=== PATIENT | female | born 1955 | race Caucasian/White ===

== ENCOUNTER 2020-09-08 08:33 | Emergency (ER) | payer OTHER, SELFPAY ==
[2020-09-08 08:45] VITALS: BP 142/82; PULSE 71; RESP 18; TEMP 36.6; O2SAT 98
--- NOTE | 2020-09-08 08:50 | ED.SKABFB ---
HPI - Skin/Abscess/Foreign Bdy General Chief complaint: Skin/Abscess/Foreign Body Stated complaint: boils Time Seen by Provider: 09/08/20 08:55 Source: patient Mode of arrival: ambulatory Limitations: no limitations History of Present Illness HPI narrative: Azael Victoria is a 65 yo female with a PMH of HTN, high cholesterol, seasonal allergies, who comes to express care with boils on abdomen, L buttock, and left labia. None are fluctuant; smaller ones on abdomen; larger one on labia Discussed care and MRSA and she is taking care of her father who is in hospice Related Data Home Medications Medication Instructions Recorded Confirmed atorvastatin [Lipitor] 40 mg PO DAILY 09/08/20 09/08/20 cholecalciferol (vitamin D3) 125 mcg PO DAILY 09/08/20 09/08/20 [Vitamin D3] clopidogrel [Plavix] 75 mg PO DAILY 09/08/20 09/08/20 levothyroxine 75 mcg PO DAILY 09/08/20 09/08/20 omeprazole 09/08/20 sertraline mg 09/08/20 Allergies Allergy/AdvReac Type Severity Reaction Status Date / Time No Known Allergies Allergy Verified 09/08/20 08:55 Review of Systems Review of Systems: Narrative: CONSTITUTIONAL: Denies fever, chills, sweats. EYES: Denies visual changes, redness, discharge. ENT: Denies rhinorrhea, congestion, sore throat, otalgia. CARDIOVASCULAR: Denies chest pain, palpitations, edema. RESPIRATORY: Denies dyspnea, wheezing, cough GASTROINTESTINAL: Denies abdominal pain, nausea, vomiting, diarrhea. GENITOURINARY: Denies dysuria, hematuria, abnormal discharge SKIN: Denies rash or itching. Multiple boils on abdomen genital left buttock NEUROLOGIC: Denies numbness, or focal weakness. PSYCHIATRIC: Denies anxiety or depression. [facility] Past Medical History Medical History (Updated 09/08/20 @ 09:37 by Joanne Ruiz CNP) High cholesterol HTN (hypertension) Stroke Family History Family History Other Diabetes mellitus Hypertension Social History Social History (Updated 09/08/20 @ 09:28 by Joanne Ruiz CNP) Smoking status: Never smoker Alcohol intake: never Comments At time of signature, I agree with nursing past medical, surgical, social and family history. There is no relevant family history pertinent to the presenting complaint. Exam Narrative: Exam Narrative: GENERAL: This is a well-nourished, well-developed patient, in mild distress. HEAD: normocephalic, atraumatic. EYES: Sclera clear/white. Vision is grossly intact. EARS: External ears normal, . Hearing grossly intact. NOSE: External nose normal without nasal discharge, nares without redness, no rhinorrhea. THROAT: Mucous membranes moist, NECK: Neck supple, non-tender CARDIOVASCULAR: Regular rate and rhythm without murmurs, gallops, or rubs. RESPIRATORY: Clear to auscultation. Breath sounds equal bilaterally. No wheezes, rales, or rhonchi. GASTROINTESTINAL: Abdomen soft, SKIN: warm, intact with no suspicious lesions or rash, good texture and turgor. Multiple stages of boils on abdomen and left buttock and left labia, left labia quite swollen but is not fluctuant, but on left buttock is one by one nonfluctuant, the 2 boils on her abdomen are less than half a centimeter in diameter nonfluctuant NEURO: awake, alert, and oriented to person, place and time. There were no obvious focal neurologic abnormalities. Steady gait EXTREMITIES: Normal range of motion. BACK: Nontender without deformity Course Vital Signs Vital signs: Vital Signs Temperature 98 F 09/08/20 08:45 Pulse Rate 71 09/08/20 08:45 Respiratory Rate 18 09/08/20 08:45 Blood Pressure 142/82 H 09/08/20 08:45 Pulse Oximetry 98 09/08/20 08:45 Temperature 98 F 09/08/20 08:45 Pulse Rate 71 09/08/20 08:45 Respiratory Rate 18 09/08/20 08:45 Blood Pressure 142/82 H 09/08/20 08:45 Pulse Oximetry 98 09/08/20 08:45 Procedures Abscess I/D bartholin's gland: Date of Incision:
== END 2020-09-08 09:40 | disposition home or self-care (01) ==
PROVIDERS: Emergency Provider Nurse Practitioner; PCP Family Medicine
DX: N75.1 Abscess of Bartholin's gland (principal); L03.317 Cellulitis of buttock; L02.221 Furuncle of abdominal wall; E78.00 Pure hypercholesterolemia, unspecified; I10 Essential (primary) hypertension; Z86.73 Personal history of transient ischemic attack (TIA), and cerebral infarction without residual deficits
CPT/HCPCS: 56420; 99213; G0463

== ENCOUNTER 2024-12-07 09:10 | Emergency (ER) | payer MEDICARE, SELFPAY ==
[2024-12-07 09:16] VITALS: BP 155/95; PULSE 71; RESP 16; TEMP 37.1; O2SAT 98
--- NOTE | 2024-12-07 09:31 | ED.URI ---
HPI - URI/Sore Throat General Chief Complaint: Upper Respiratory Infection Stated Complaint: Cough/Shortness of Breath Time Seen by Provider: 12/07/24 09:31 Source: patient and RN notes reviewed Mode of arrival: ambulatory Limitations: no limitations History of Present Illness HPI Narrative: 69-year-old female presents with concern for cough for 1 week. She reports chest congestion and feels like it is settling in her chest. She reports she took Mucinex yesterday. She reports mild runny nose. Denies fever, aches, chills, sweats. MD elicited complaint: cough Related Data Home Medications ?Medication ?Instructions ?Recorded ?Confirmed ?Last Taken ?Type atorvastatin 40 mg tablet (Lipitor) 40 mg PO DAILY 09/08/20 09/08/20 Unknown History cholecalciferol (vitamin D3) 125 125 mcg PO DAILY 09/08/20 09/08/20 Unknown History mcg (5,000 unit) tablet (Vitamin D3) clopidogrel 75 mg tablet (Plavix) 75 mg PO DAILY 09/08/20 09/08/20 Unknown History levothyroxine 75 mcg capsule 75 mcg PO DAILY 09/08/20 09/08/20 Unknown History omeprazole 20 mg capsule,delayed 09/08/20 Unknown History release sertraline 50 mg tablet mg 09/08/20 Unknown History Allergies Allergy/AdvReac Type Severity Reaction Status Date / Time No Known Allergies Allergy Verified 09/08/20 08:55 Review of Systems Review of Systems: CONSTITUTIONAL: Denies malaise, chills, sweats, or fever. EYES: Denies visual changes, redness, or discharge. ENT: Reports rhinorrhea, congestion. Denies sinus pain, otalgia and sore throat. CARDIOVASCULAR: Denies chest pain, palpitations, or edema. RESPIRATORY: Reports cough my chest congestion. Denies dyspnea. GASTROINTESTINAL: Denies abdominal pain, nausea, vomiting, diarrhea SKIN: Denies rash or itching. MUSCULOSKELETAL: Denies myalgia. NEUROLOGIC: Denies headache. 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 There is no relevant family history pertinent to the presenting complaint Exam Narrative: GENERAL: Well-appearing, well-nourished, and in no acute distress. HEAD: Normocephalic EYES: PERRLA, conjunctivae clear ENT: Nares clear, turbinates edematous and erythematous, clear discharge. Mucous membranes moist. TM pearly villa with dull light reflex bilaterally; no tragal tenderness. Oropharynx not erythematous without lesions. Tonsils not enlarged and without exudate, no drooling, no hoarseness, no trismus, uvula midline. NECK: Supple. No lymphadenopathy CHEST: Left lobe bronchi, right lobe Clear to auscultation, breath sounds equal. No wheezing, rales, or stridor. No respiratory distress, speaks in full sentences. HEART: Regular rate and rhythm. No murmur heard. SKIN: Warm, dry, no rash. NEURO: Alert and oriented x3. PSYCH: Normal mood and affect Course Course Emergency Course: Patient is aware of diagnosis, understands and agrees to treatment plan. Anticipatory guidance given. Patient agrees to follow-up as directed and is aware of reasons to seek care at the emergency department. Portions of this record may have been created with voice recognition software Level of Care: Express Care Visit Vital Signs Vital signs: Vital Signs Temperature 98.7 F 12/07/24 09:16 Pulse Rate 71 12/07/24 09:16 Respiratory Rate 16 12/07/24 09:16 Blood Pressure 155/95 H 12/07/24 09:16 Pulse Oximetry 98 12/07/24 09:16 Oxygen Delivery Room Air 12/07/24 09:16 Temperature 98.7 F 12/07/24 09:16 Pulse Rate 71 12/07/24 09:16 Respiratory Rate 16 12/07/24 09:16 Blood Pressure 155/95 H 12/07/24 09:16 Pulse Oximetry 98 12/07/24 09:16 Oxygen Delivery Room Air 12/07/24 09:16 Reviewed. MDM - URI/Sore Throat MDM Narrative Medical decision making narrative: Differential diagnosis considered: Hendricks virus, strep pharyngitis, allergic rhinitis, upper respiratory tract infection, sinusitis, rhinosinusitis, nasopharyngitis. viral pharyngitis, otitis media, otitis externa, pneumonia, bronchitis, viral cough syndrome, viral syndrome, and influenza. Exam findings show no acute concerns or changes; patient is non-toxic appearing and is in no distress. Patient is appropriate for outpatient treatment and follow-up. Lab Data Attestation: I reviewed the patient's lab results. Critical Care Time Critical Care Time Critical Care Time: No Discharge Plan Discharge Clinical Impression: Lower respiratory tract infection Patient Disposition: Home, Self-Care Condition: Stable Instructions: Antibiotic Form, Acute Cough (ED) Additional Instructions: 1) Please follow-up with your primary care doctor in the next 1-2 days. 2) If you have any worsening of symptoms or any other urgent concerns please go to the ER. 3) Please take medications as prescribed and continue taking your home medications as usual. 4) Please read and follow information included in discharge instructions. Patient Language: Macedonian Prescriptions: New azithromycin [Zithromax Z-Antonio] 250 mg tablet See Rx Instructions .ROUTE .COMPLEX Qty: 6 0RF Rx Instructions: take 500 mg today (day 1), then 250 mg for 4 days (days 2-5) methylprednisolone [Medrol (Antonio)] 4 mg tablets,dose pack See Rx Instructions .ROUTE .COMPLEX Qty: 21 0RF Rx Instructions: orally per package directions No Action atorvastatin [Lipitor] 40 mg Tablet 40 mg PO DAILY clopidogrel [Plavix] 75 mg Tablet 75 mg PO DAILY omeprazole 20 mg Capsule,Delayed Release(Dr/Ec) sertraline 50 mg Tablet cholecalciferol (vitamin D3) [Vitamin D3] 125 mcg (5,000 unit) Tablet 125 mcg PO DAILY levothyroxine 75 mcg Capsule 75 mcg PO DAILY Follow-up/Referrals: UNKNOWN,DOCTOR [Primary Care Provider] - Time of Disposition: 09:41
--- OUTSIDE RECORDS SUMMARY | 2024-12-07 09:43 | XMS_ITS | Encounter Summary ---
Author Organization [facility] Healthcare Address [address] [place] [address] Care Team Providers Care Continuous Miner Name Role Phone Yissel Keesha [employer] ENGINEER Primary Care Provider Adela Colón [employer] ENGINEER Primary Care Provider [phone] Vernell Horowitz [employer] L[employer]ING ENGINEER Unavailable Reason for Visit * Reason Onset Date Comments Scheduling Appointments 01/25/2021 Confirmi ng mammogram appt Encounter Details Date Type Department Care Team (Late st Contact Info) Description 01/25/2021 Telephone [facility] [address] [place] [id number] Tonie Aguila, Scheduling Appointments (Confirming mammogram appt ) Social History Tobacco Use Types Packs/Day Years Used Date Smoking Tobacco: Never Smokeless Tobacco: Never Alcohol Use Standard Drinks/Week Comments No 0 (1 standard drink = 0.6 oz pur e alcohol) PHQ-2 Answer Date Recorded PHQ-2 Total Score (If total score is 3 or more points, staff should administer the PHQ-9) 1 01/10/2021 Comments No Sex and Gender Information Value Date Recorded Sex Assigned at Not on file Legal Sex Female 11:33 PM [employer] Gender Identity Not on file Sexual Orientation Not on file documented as of this encounter Plan of Treatment Not on file documented as of this encounter Visit Diagnoses Not on filedocumented in this encounter Additional Health Concerns Infection Onset Date Last Indicated Resolved Time COVID: Suspected 05/02/2024 05/02/2024 05/02/2024 8:54 AM CDT COVID: Suspected 05/10/2024 05/10/2024 05/10/2024 4:43 PM CDT COVID: Suspected 05/10/2024 05/10/2024 05/10/2024 8:54 PM CDT COVID19 05/10/2024 05/10/2024 05/20/2024 3:0 5 AM CDT COVID: Recovered Comment:Added based on recent COVID infection. 05/20/2024 06/23/2024 08/18/2024 3:[address] documented as of this encounter Care Teams Continuous Miner Relationship Specialty Start Date End Date Keesha Dey NP PCP - General Family Medicine 06/21/19 09/23/22 Adela Colón NP [address] [place] [address] PCP - General Family Medicine 09/24/22 Vernell Horowitz NP [address] [address] Obstetrics and Gynecology 01/18/24 documented as of this encounter
--- OUTSIDE RECORDS SUMMARY | 2024-12-07 09:43 | XMS_ITS | Clinical Summary ---
Author Organization [facility] al Address [address] [place] [address] Care Team Providers Care Lumber Sorter Name Role Phone Adela Colón NP Primary Care Provider [phone] Vernell Horowitz POSTING CLERK Unavailable Allergies No known active allergies Medications fluticasone propionate (FLONASE) 50 mcg/actuation nasal sprayIndications:A llergic rhinitis, unspecified seasonality, unspecified trigger Administer 1 spray into each nostril daily 16 g 3 06/21/20 19 Active cholecalciferol, vitamin D3, (VITAMIN D3 ORAL)Indications:s upplement Take 5,000 Int'l Units by mouth every morning Active multivitamin capsuleIndications :Vitamin Deficiency Prevention Take 1 capsule by mouth every morning Active ezetimibe (ZETIA) 10 mg tablet Take 1 tablet by mouth once daily 90 tablet 3 12/25/19 24 Active clopidogreL (PLAVIX) 75 mg tabletIndications: Arteriosclerotic vascular disease Take 1 tablet by mouth once daily 90 tablet 3 12/25/19 24 Active atorvastatin (LIPITOR) 80 mg tabletIndications: Multiple-type hyperlipidemia Take 1 tablet by mouth once daily 90 tablet 3 12/25/19 24 Active famotidine (PEPCID) 20 mg tabletIndications: Gastroesophageal reflux disease without esophagitis Take 1 tablet (20 mg total) by mouth daily 90 tablet 3 01/18/20 24 Active levothyroxine (SYNTHROID) 75 mcg tabletIndications: Acquired hypothyroidism Take 1 tablet (75 mcg total) by mouth daily 90 tablet 3 01/18/20 24 Active omeprazole (PriLOSEC) 20 mg capsule Take 1 capsule (20 mg total) by mouth daily Active nystatin ointment APPLY OINTMENT TOPICALLY TWICE DAILY 30 g 1 08/08/20 24 Active clobetasoL (TEMOVATE) 0.05 % ointment APPLY TOPICALLY TO AFFECTED AREA TWICE DAILY DIRECTED 45 g 1 08/08/20 24 Active sertraline (ZOLOFT) 100 mg tabletIndications: Anxiety,Mild episode of recurrent major depressive disorder Take 2 tablets (200 mg total) by mouth daily 180 tablet 3 11/23/19 25 Active sertraline (ZOLOFT) 100 mg tabletIndications: Anxiety,Mild episode of recurrent major depressive disorder Take 2 tablets (200 mg total) by mouth daily 08/08/20 24 025 Discontin ued(Reord er) Active Problems Problem Noted Date Diagnosed Date Difficulty swallowing pills 09/19/2024 Assessment & Plan (09/19/2024 9:25 AM NYLON MENDER): -Chronic, stable -Patient reports she feels like her pills get stuck when she takes them at nighttime -May try taking all of her medications in the morning -If this worsens, may need to order a swallow study or EGD Chronic vulvitis 01/06/2023 Assessment & Plan (01/14/2024 4:04 PM CDT): Can use nystatin, antifungal daily or as needed. With onset of flare encouraged to continue use of clobetasol steroid ointment. Inform patient water is actually very drying to skin and she may be making symptoms aggravated with increasing frequency of water to vaginal/vulva area. I would recommend she use the coconut oil at least 2 to 3 times a week to vulva to help moisturize tissue and as a skin protectant. Patient to call office if symptoms worsen or if she sees no improvement. Assessment & Plan (01/06/2023 10:52 AM CDT): Use steroid ointment to external vaginal area and vulva as directed. For now, apply a thin layer daily to affected area for 4 to 6 weeks. Then only use steroid ointment as needed for no more than 7 to 14 days with each flare up. Recommend coconut oil, in solid form, in between flares to help protect skin. Can apply topically daily and as needed. Coconut oil is safe to put inside the vagina as well and can be used as a lubricant. Carpal tunnel syndrome of left wrist 07/04/2022 Overview (07/04/2022): Added automatically from request for surgery [id number] Assessment & Plan (07/09/2022 8:16 AM CDT): Pt having surgery tomorrow with Dr. Cárdenas hand surgeon Cubital tunnel syndrome on left 07/04/2022 Overview (07/04/2022): Added automatically from request for surgery [id number] Assessment & Plan (07/09/2022 8:16 AM CDT): Pt having surgery tomorrow with Dr. 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 Cárdenas hand surgeon Prediabetes 01/07/2022 Assessment & Plan (08/15/2024 8:03 AM NYLON MENDER): -chronic, stable -Discussed/ordered labs -encouraged healthy, low carbohydrate lifestyle and at least 150min/week of exercise. Assessment & Plan (01/18/2024 7:54 AM CDT): -chronic, worsening -Discussed/ordered labs -encouraged healthy, low carbohydrate lifestyle and at least 150min/week of exercise. Assessment & Plan (07/07/2023 12:46 PM CDT): Chronic problem-stable FBG 91 A1C 5.3 Continue to monitor Fasting labs were Encouraged to follow a heart healthy diet-low carb, low-fat diet Encouraged to increase activity to at least 150 minutes per week Assessment & Plan (01/05/2023 7:15 AM CDT): HPI: Condition is stable A&P: Discussed/ordered labs, encouraged healthy, low carbohydrate lifestyle and at least 150min/week of exercise. Assessment & Plan (07/09/2022 8:22 AM CDT): HPI: Condition is at goal A&P: Discussed/ordered labs, encouraged healthy, low carbohydrate lifestyle and at least 150min/week of exercise Assessment & Plan (01/07/2022 10:12 AM CDT): HPI: Condition is stable A&P: Discussed/ordered labs, encouraged healthy, low carbohydrate lifestyle and at least 150min/week of exercise History of stroke 01/07/2022 Assessment & Plan (01/18/2024 7:55 AM CDT): -chronic, stable -Discussed/ordered labs -continue on clopidogrel 75 mg daily, atorvastatin 80 mg daily, Zetia 10 mg daily Assessment & Plan (01/05/2023 7:14 AM CDT): HPI: Condition is stable A&P: Discussed/ordered labs, encouraged healthy, low carbohydrate lifestyle and at least 150min/week of exercise, continue on clopidogrel 75 mg daily, atorvastatin 80 mg daily, Zetia 10 mg daily Assessment & Plan (07/09/2022 8:19 AM CDT): HPI: Condition is stable A&P: Discussed/ordered labs, encouraged healthy, low carbohydrate lifestyle and at least 150min/week of exercise, continue on clopidogrel 75mg daily, atorvastatin 80mg daily, zetia 10mg daily Assessment & Plan (01/07/2022 10:18 AM CDT): HPI: Condition is stable , no lingering symptoms A&P: Discussed/ordered labs, encouraged healthy, low carbohydrate lifestyle and at least 150min/week of exercise, continue on clopidogrel 75mg daily, atorvastatin 80mg daily, zetia 10mg daily Obstructive sleep apnea syndrome 09/15/2019 Assessment & Plan (08/15/2024 8:02 AM NYLON MENDER): -chronic, stable -patient is no longer using a CPAP and does not follow with sleep medicine -Denies any issues Assessment & Plan (01/18/2024 2:27 PM CDT): -chronic, stable -patient is no longer using her CPAP or following with sleep Medicine- patient denies any issues -recommend using CPAP Assessment & Plan (07/07/2023 12:47 PM CDT): Chronic problem-stable Patient states she has stopped using her CPAP and has canceled her appointments with Dr. Jaime sleep medicine Patient states she was told she did not have obstructive sleep apnea Continue to monitor Patient is encouraged to continue following up with Dr. Jaime sleep Medicine Assessment & Plan (01/05/2023 1:51 PM CDT): Pt states using cpap for 6 hours/night 6 nights/wk Pt states less daytime somnolence, feels better when using it. Would recommend the continued use of cpap Continue seeing Dr. Jaime sleep Medicine Assessment & Plan (07/09/2022 11:00 AM CDT): Pt states using cpap for 6 hours/night 6 nights/wk Pt states less daytime somnolence, feels better when using it. Would recommend the continued use of cpap Pt sees Dr. Jaime sleep med Assessment & Plan (01/07/2022 10:13 AM CDT): Pt states using cpap for 7 hours/night 7 nights/wk Pt states less daytime somnolence, feels better when using it. Would recommend the continued use of cpap Pt sees Dr. Jaime sleep med Assessment & Plan (07/09/2021 10:14 AM CDT): Pt states using cpap for 7 hours/night 6 nights/wk Pt states less daytime somnolence, feels better when using it. Would recommend the continued use of cpap Assessment & Plan (11/14/2020 3:20 PM NYLON MENDER): Pt states using cpap for 7 hours/night 5 nights/wk Pt states less daytime somnolence, feels better when using it. Would recommend the continued use of cpap She has been having a rash around her nose from the mask. Her sleep med doctor is getting her a new mask Pt sees Dr. Jaime (sleep med) Assessment & Plan (06/27/2020 11:17 AM CDT): Condition is stable Patient states she is using CPAP for about 6-7 hours per night for 7 nights per week She states less daytime somnolence, feels better when she is using it. We will recommend she continue use of CPAP Assessment & Plan (03/21/2020 10:55 AM CDT): Pt states using cpap for 7 hours/night 5 nights/wk Pt states less daytime somnolence, feels better when using it. Would recommend the continued use of cpap She has been down to 5 nights a week recently due to allergies. Prior to a few weeks ago, was 7 nights a week Assessment & Plan (09/20/2019 8:55 AM NYLON MENDER): Pt saw Dr. Jaime last week, is awaiting cpap Vitamin D deficiency 08/02/2019 Assessment & Plan (08/15/2024 8:02 AM NYLON MENDER): -chronic, stable -Discussed/ordered labs -continue on vitamin D3 5,000 units daily Assessment & Plan (01/18/2024 7:53 AM CDT): -chronic, stable -Discussed/ordered labs -continue on vitamin D3 5000 units daily Assessment & Plan (01/05/2023 7:16 AM CDT): HPI: Condition is stable A&P: Discussed/ordered labs, encouraged healthy, low carbohydrate lifestyle and at least 150min/week of exercise, continue on vitamin D3 5000 units daily Assessment & Plan (07/09/2022 8:25 AM CDT): HPI: Condition is Too high A&P: Discussed/ordered labs, encouraged healthy, low carbohydrate lifestyle and at least 150min/week of exercise, decrease vit d3 to 5000 units daily Assessment & Plan (01/07/2022 7:09 AM CDT): HPI: Condition is stable A&P: Discussed/ordered labs, encouraged healthy, low carbohydrate lifestyle and at least 150min/week of exercise, continue on vit d3 88999 units daily Assessment & Plan (07/09/2021 8:40 AM CDT): HPI: Condition is stable A&P: Discussed/ordered labs, encouraged healthy, low carbohydrate lifestyle and at least 150min/week of exercise, continue on vitamin D2 10,000 units daily. Assessment & Plan (11/14/2020 8:00 AM NYLON MENDER): HPI: Condition is stable A&P: Discussed/ordered labs, encouraged healthy, low carbohydrate lifestyle and at least 150min/week of exercise, [place] [address]84 units daily Assessment & Plan (06/27/2020 11:17 AM CDT): HPI: Condition is worsening A&P: Discussed/ordered labs, encouraged healthy, low carbohydrate lifestyle and at least 150min/week of exercise, [place] [address] units from twice a week to daily as level has decreased from 35 to 31 Assessment & Plan (03/21/2020 11:00 AM CDT): Discussed/ordered labs, Condition is improving, but not at goal encouraged healthy, low carbohydrate lifestyle and at least 150min/week of exercise, increase the vit d3 07242 units to twice weekly. Assessment & Plan (09/20/2019 7:39 AM NYLON MENDER): Discussed/ordered labs, Condition is stable, encouraged healthy, low carbohydrate lifestyle and at least 150min/week of exercise, [place] d 05142 units weekly. We will recheck vit d level at next office visit Mild episode of recurrent major depressive disor ubaldo 06/21/2019 Assessment & Plan (09/19/2024 9:24 AM NYLON MENDER): -chronic, improving, but not at goal -Patient does not want to change medications or start a new medication at this time -Continue on sertraline 100 mg 2 tablets nightly -Follow up in 5 months or sooner as needed Patient reiterated no suicidal thoughts at this time; take medication as directed; contact 911 and go to the ER if becomes suicidal; discussed side effects of medication with patient; encouraged healthy diet and exericise; encouraged patient to see a counselor Assessment & Plan (08/15/2024 8:02 AM NYLON MENDER): -chronic, not at/near goal -Discussed/ordered labs -Increase to sertraline 100 mg 2 tablets nightly -Follow up in 6 weeks or sooner as needed Patient reiterated no suicidal thoughts at this time; take medication as directed; contact 911 and go to the ER if becomes suicidal; discussed side effects of medication with patient; encouraged healthy diet and exericise; encouraged patient to see a counselor Assessment & Plan (01/18/2024 7:55 AM CDT): -chronic, stable -Discussed/ordered labs -continue on sertraline 150 mg nightly Patient reiterated no suicidal thoughts at this time; take medication as directed; contact 911 and go to the ER if becomes suicidal; discussed side effects of medication with patient; encouraged healthy diet and exericise; encouraged patient to see a counselor Assessment & Plan (07/07/2023 12:56 PM CDT): Chronic problem-stable Continue current regimen sertraline 150 mg Continue to monitor Patient reiterated no suicidal thoughts at this time; take medication as directed; contact 911 and go to the ER if becomes suicidal; discussed side effects of medication with patient; encouraged healthy diet and exericise; encouraged patient to see a counselor Assessment & Plan (01/05/2023 7:16 AM CDT): Patient reiterated no suicidal thoughts at this time; take medication as directed; contact 911 and go to the ER if becomes suicidal; discussed side effects of medication with patient; encouraged healthy diet and exericise; encouraged patient to see a counselor HPI: Condition is stable A&P: Discussed/ordered labs, encouraged healthy, low carbohydrate lifestyle and at least 150min/week of exercise, continue on sertraline 150 mg nightly Assessment & Plan (07/09/2022 8:27 AM CDT): HPI: Condition is stable A&P: Discussed/ordered labs, encouraged healthy, low carbohydrate lifestyle and at least 150min/week of exercise, continue on sertraline 100mg daily Assessment & Plan (01/07/2022 7:10 AM CDT): Patient reiterated no suicidal thoughts at this time; take medication as directed; contact 911 and go to the ER if becomes suicidal; discussed side effects of medication with patient; encouraged healthy diet and exericise; encouraged patient to see a counselor HPI: Condition is stable A&P: Discussed/ordered labs, encouraged healthy, low carbohydrate lifestyle and at least 150min/week of exercise, continue on sertraline 100mg daily Assessment & Plan (07/09/2021 8:42 AM CDT): HPI: Condition is stable A&P: Discussed/ordered labs, encouraged healthy, low carbohydrate lifestyle and at least 150min/week of exercise, continue on sertraline 100 mg daily. Patient reiterated no suicidal thoughts at this time; take medication as directed; contact 911 and go to the ER if becomes suicidal; discussed side effects of medication with patient; encouraged healthy diet and exericise; encouraged patient to see a counselor Assessment & Plan (04/04/2021 10:05 AM CDT): Patient reiterated no suicidal thoughts at this time; take medication as directed; contact 911 and go to the ER if becomes suicidal; discussed side effects of medication with patient; encouraged healthy diet and exericise; encouraged patient to see a counselor HPI: Condition is stable at our last visit patient wanted to decrease her sertraline A&P: Discussed/ordered labs, encouraged healthy, low carbohydrate lifestyle and at least 150min/week of exercise, at last visit we gave a decrease the plan for her sertraline. She was to go from 150 mg alternating with 200 mg every other day x2 weeks, then take 150 mg for 2 days and 200 mg a 3rd days and repeat for 2 weeks, then take 150 mg daily Stay on the 150mg daily and return in 3 mo. Sooner if needed. Assessment & Plan (02/28/2021 10:43 AM CDT): Patient reiterated no suicidal thoughts at this time; take medication as directed; contact 911 and go to the ER if becomes suicidal; discussed side effects of medication with patient; encouraged healthy diet and exericise; encouraged patient to see a counselor HPI: Condition is improving , pt would like to go back down on the sertraline. A&P: Discussed/ordered labs, encouraged healthy, low carbohydrate lifestyle and at least 150min/week of exercise, try weaning to 150mg by alternating 200mg and 150mg every other day x 2 wks, then taking 150mg for 2 days, then 200mg on the third day and repeat x 2 wks, then take 150mg daily. Return in 6 wks Assessment & Plan (01/10/2021 10:26 AM CDT): Patient reiterated no suicidal thoughts at this time; take medication as directed; contact 911 and go to the ER if becomes suicidal; discussed side effects of medication with patient; encouraged healthy diet and exericise; encouraged patient to see a counselor HPI: Condition is improving, but not at goal, not sure if it is the medication or if her circumstances are improving with the improved weather, starting back to work. She is still working on rehabbing house and getting closer to being done. Mom's arm is better. Found out mom does not have cancer. A&P: Discussed/ordered labs, encouraged healthy, low carbohydrate lifestyle and at least 150min/week of exercise, at last office visit we increased the sertraline to 200mg daily Assessment & Plan (11/14/2020 3:24 PM NYLON MENDER): Patient reiterated no suicidal thoughts at this time; take medication as directed; contact 911 and go to the ER if becomes suicidal; discussed side effects of medication with patient; encouraged healthy diet and exericise; encouraged patient to see a counselor HPI: Condition is worsening , she is having more symptoms this winter. Dad just , was on hospice. Mom broke arm and she is taking care of her. Mom may have a new cancer. 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 Pt says she usually struggles more in the winter. A&P: Discussed/ordered labs, encouraged healthy, low carbohydrate lifestyle and at least 150min/week of exercise, she has been on sertraline 150 mg daily. We will increase to 200mg daily and recheck pt in 6-8 wks. Assessment & Plan (06/27/2020 11:18 AM CDT): Patient reiterated no suicidal thoughts at this time; take medication as directed; contact 911 and go to the ER if becomes suicidal; discussed side effects of medication with patient; encouraged healthy diet and exericise; encouraged patient to see a counselor HPI: Condition is stable A&P: Discussed/ordered labs, encouraged healthy, low carbohydrate lifestyle and at least 150min/week of exercise, continue on sertraline 150 mg daily Assessment & Plan (03/21/2020 11:04 AM CDT): Patient reiterated no suicidal thoughts at this time; take medication as directed; contact 911 and go to the ER if becomes suicidal; discussed side effects of medication with patient; encouraged healthy diet and exericise; encouraged patient to see a counselor Pt taking sertraline 150mg daily and feels it mostly holds her. She is a worrier. She is not taking the buspirone-it made her feel weird. It has been over 6 mo since she used it. Assessment & Plan (09/20/2019 9:09 AM NYLON MENDER): Patient reiterated no suicidal thoughts at this time; take medication as directed; contact 911 and go to the ER if becomes suicidal; discussed side effects of medication with patient; encouraged healthy diet and exericise; encouraged patient to see a counselor Condition is stable We will increase the sertraline to 150mg daily May take the buspar 10mg as needed for anxiety Assessment & Plan (07/05/2019 7:05 AM CDT): Patient reiterated no suicidal thoughts at this time; take medication as directed; contact 911 and go to the ER if becomes suicidal; discussed side effects of medication with patient; encouraged healthy diet and exericise; encouraged patient to see a counselor Condition is stable. She is currently on sertraline 100mg daily. Finds she is holding her breath a lot. She has not been taking the alprazolam 0.25mg regularly. She has taken it about 5 times in the last month. She states nothing major triggers her anxiety. Since she has been retired the last year, everyone in her family has been sick. Mom is getting chemo right now and she is taking care of that. She says she is sleeping, not waking up a lot at night. She says she snores a lot and has woken up gasping. We will continue on the sertraline 100mg daily Stop the alprazolam and instead use buspar 10mg as needed for anxiety. You may take it to a max of 3 times daily, but if you begin needing it often, even daily, please make an appt to see me to rediscuss your condition. Sleep study ordered Anxiety 06/21/2019 Assessment & Plan (09/19/2024 9:24 AM NYLON MENDER): -chronic, improving, but not at goal -Patient does not want to change medications or start a new medication at this time -Continue on sertraline 100 mg 2 tablets nightly -Follow up in 5 months or sooner as needed Patient reiterated no suicidal thoughts at this time; take medication as directed; contact 911 and go to the ER if becomes suicidal; discussed side effects of medication with patient; encouraged healthy diet and exericise; encouraged patient to see a counselor Assessment & Plan (08/15/2024 8:02 AM NYLON MENDER): -chronic, stable- depression is not at goal -Discussed/ordered labs -Increase to sertraline 100 mg 2 tablets nightly -Follow up in 6 weeks or sooner as needed Patient reiterated no suicidal thoughts at this time; take medication as directed; contact 911 and go to the ER if becomes suicidal; discussed side effects of medication with patient; encouraged healthy diet and exericise; encouraged patient to see a counselor Assessment & Plan (01/18/2024 2:27 PM CDT): -chronic, stable -Discussed/ordered labs -continue on sertraline 150 mg nightly Patient reiterated no suicidal thoughts at this time; take medication as directed; contact 911 and go to the ER if becomes suicidal; discussed side effects of medication with patient; encouraged healthy diet and exericise; encouraged patient to see a counselor Assessment & Plan (07/07/2023 12:56 PM CDT): Chronic problem-status Continue with sertraline 150 mg daily Continue to monitor Patient reiterated no suicidal thoughts at this time; take medication as directed; contact 911 and go to the ER if becomes suicidal; discussed side effects of medication with patient; encouraged healthy diet and exericise; encouraged patient to see a counselor Assessment & Plan (01/05/2023 7:16 AM CDT): Patient reiterated no suicidal thoughts at this time; take medication as directed; contact 911 and go to the ER if becomes suicidal; discussed side effects of medication with patient; encouraged healthy diet and exericise; encouraged patient to see a counselor HPI: Condition is stable A&P: Discussed/ordered labs, encouraged healthy, low carbohydrate lifestyle and at least 150min/week of exercise, continue on sertraline 150 mg nightly Assessment & Plan (07/09/2022 8:26 AM CDT): HPI: Condition is stable A&P: Discussed/ordered labs, encouraged healthy, low carbohydrate lifestyle and at least 150min/week of exercise, continue on sertraline 100mg daily Assessment & Plan (01/07/2022 7:10 AM CDT): HPI: Condition is stable A&P: Discussed/ordered labs, encouraged healthy, low carbohydrate lifestyle and at least 150min/week of exercise, continue on sertraline 100mg daily Assessment & Plan (07/09/2021 8:41 AM CDT): HPI: Condition is stable A&P: Discussed/ordered labs, encouraged healthy, low carbohydrate lifestyle and at least 150min/week of exercise, continue on sertraline 100 mg daily. Assessment & Plan (04/04/2021 10:05 AM CDT): Patient reiterated no suicidal thoughts at this time; take medication as directed; contact 911 and go to the ER if becomes suicidal; discussed side effects of medication with patient; encouraged healthy diet and exericise; encouraged patient to see a counselor HPI: Condition is stable at our last visit patient wanted to decrease her sertraline A&P: Discussed/ordered labs, encouraged healthy, low carbohydrate lifestyle and at least 150min/week of exercise, at last visit we gave a decrease the plan for her sertraline. She was to go from 150 mg alternating with 200 mg every other day x2 weeks, then take 150 mg for 2 days and 200 mg a 3rd days and repeat for 2 weeks, then take 150 mg daily Stay on the 150mg daily and return in 3 mo. Sooner if needed. Assessment & Plan (02/28/2021 10:42 AM CDT): Patient reiterated no suicidal thoughts at this time; take medication as directed; contact 911 and go to the ER if becomes suicidal; discussed side effects of medication with patient; encouraged healthy diet and exericise; encouraged patient to see a counselor HPI: Condition is improving , pt would like to go back down on the sertraline. A&P: Discussed/ordered labs, encouraged healthy, low carbohydrate lifestyle and at least 150min/week of exercise, try weaning to 150mg by alternating 200mg and 150mg every other day x 2 wks, then taking 150mg for 2 days, then 200mg on the third day and repeat x 2 wks, then take 150mg daily. Return in 6 wks Assessment & Plan (01/10/2021 10:25 AM CDT): Patient reiterated no suicidal thoughts at this time; take medication as directed; contact 911 and go to the ER if becomes suicidal; discussed side effects of medication with patient; encouraged healthy diet and exericise; encouraged patient to see a counselor HPI: Condition is improving, but not at goal, not sure if it is the medication or if her circumstances are improving with the improved weather, starting back to work. 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 Mom's arm is better. Found out mom does not have cancer. A&P: Discussed/ordered labs, encouraged healthy, low carbohydrate lifestyle and at least 150min/week of exercise, at last office visit we increased the sertraline to 200mg daily Assessment & Plan (11/14/2020 3:23 PM NYLON MENDER): Patient reiterated no suicidal thoughts at this time; take medication as directed; contact 911 and go to the ER if becomes suicidal; discussed side effects of medication with patient; encouraged healthy diet and exericise; encouraged patient to see a counselor HPI: Condition is worsening , she is having more symptoms this winter. Dad just , was on hospice. Mom broke arm and she is taking care of her. Mom may have a new cancer. 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 Pt says she usually struggles more in the winter. A&P: Discussed/ordered labs, encouraged healthy, low carbohydrate lifestyle and at least 150min/week of exercise, she has been on sertraline 150 mg daily. We will increase to 200mg daily and recheck pt in 6-8 wks. Assessment & Plan (06/27/2020 11:18 AM CDT): Patient reiterated no suicidal thoughts at this time; take medication as directed; contact 911 and go to the ER if becomes suicidal; discussed side effects of medication with patient; encouraged healthy diet and exericise; encouraged patient to see a counselor HPI: Condition is stable A&P: Discussed/ordered labs, encouraged healthy, low carbohydrate lifestyle and at least 150min/week of exercise, continue on sertraline 150 mg daily Assessment & Plan (03/21/2020 11:04 AM CDT): Patient reiterated no suicidal thoughts at this time; take medication as directed; contact 911 and go to the ER if becomes suicidal; discussed side effects of medication with patient; encouraged healthy diet and exericise; encouraged patient to see a counselor Pt taking sertraline 150mg daily and feels it mostly holds her. She is a worrier. She is not taking the buspirone-it made her feel weird. It has been over 6 mo since she used it. Assessment & Plan (09/20/2019 9:08 AM NYLON MENDER): Patient reiterated no suicidal thoughts at this time; take medication as directed; contact 911 and go to the ER if becomes suicidal; discussed side effects of medication with patient; encouraged healthy diet and exericise; encouraged patient to see a counselor Condition is stable We will increase the sertraline to 150mg daily May take the buspar 10mg as needed for anxiety De Quervain's tenosynovitis 02/01/2019 Assessment & Plan (07/09/2022 11:12 AM CDT): HPI: Condition is stable A&P: Discussed/ordered labs, encouraged healthy, low carbohydrate lifestyle and at least 150min/week of exercise Having surgery tomorrow with Dr. Cárdenas Assessment & Plan (01/07/2022 10:18 AM CDT): Every once in a while she has symptoms Assessment & Plan (07/09/2021 8:44 AM CDT): HPI: Condition is stable A&P: Discussed/ordered labs, encouraged healthy, low carbohydrate lifestyle and at least 150min/week of exercise, encouraged patient to continue to make adjustments to how she uses her hands. Assessment & Plan (03/21/2020 11:02 AM CDT): Discussed/ordered labs, Condition is stable encouraged healthy, low carbohydrate lifestyle and at least 150min/week of exercise, she has made adjustments to how she uses her hands. She hasn't needed another shot in a year. Assessment & Plan (06/21/2019 11:18 AM CDT): Pt seeing ortho for this. It is improving. She got a steroid shot in May 2019 and has been much improved. Gastroesophageal reflux disease 01/15/2017 Assessment & Plan (01/18/2024 7:56 AM CDT): -chronic, stable Continue on current meds omeprazole 20 mg daily, encouraged healthy diet and exercise Avoid trigger foods including: carbonated beverages, caffeine, spicy, fried foods, tomatoes, cucumbers, mint, and acidic fruits/juices like orange/lemon/grapefruit. Avoid eating/drinking anything for at least 2 hours before bed. Sleep with bed propped. Discussed increased risk of cdif , bone loss and vit B12 deficiency with residential use of PPI with pt, would like to remain on medication at this time Assessment & Plan (01/05/2023 7:16 AM CDT): HPI: Condition is stable Continue on current meds omeprazole 20 mg daily, encouraged healthy diet and exercise Avoid trigger foods including: carbonated beverages, caffeine, spicy, fried foods, tomatoes, cucumbers, mint, and acidic fruits/juices like orange/lemon/grapefruit. Avoid eating/drinking anything for at least 2 hours before bed. Sleep with bed propped. Discussed increased risk of cdif , bone loss and vit B12 deficiency with moth exterminator use of PPI with pt, would like to remain on medication at this time Assessment & Plan (07/09/2022 11:13 AM CDT): HPI: Condition is stable pt tried weaning off of omeprazole after our last visit and was unable to decrease Continue on current meds omeprazole 20mg daily, encouraged healthy diet and exercise Avoid trigger foods including: carbonated beverages, caffeine, spicy, fried foods, tomatoes, cucumbers, mint, and acidic fruits/juices like orange/lemon/grapefruit. Avoid eating/drinking anything for at least 2 hours before bed. Sleep with bed propped. Discussed increased risk of cdif , bone loss and vit B12 deficiency with moth exterminator use of PPI with pt, would like to remain on medication at this time Assessment & Plan (01/07/2022 10:16 AM CDT): HPI: Condition is stable Continue on current meds omeprazole 20mg daily, encouraged healthy diet and exercise Avoid trigger foods including: carbonated beverages, caffeine, spicy, fried foods, tomatoes, cucumbers, mint, and acidic fruits/juices like orange/lemon/grapefruit. Avoid eating/drinking anything for at least 2 hours before bed. Sleep with bed propped. Discussed increased risk of cdif , bone loss and vit B12 deficiency with moth exterminator use of PPI with pt, would like to remain on medication at this time To discontinue the medication: Week 1-2: Take, Take, Hold, Take, Take, Hold, Take Week 3-4: Take, Hold, Take, Hold, Take, Hold, Take Week 5-6: Hold, Hold, Take, Hold, Hold, Take, Hold Week 7: hold meds all together If at anytime your symptoms return, go back a week and try again Assessment & Plan (07/09/2021 8:44 AM CDT): HPI: Condition is stable Continue on current omeprazole 20 mg daily, encouraged healthy diet and exercise Avoid trigger foods including: carbonated beverages, caffeine, spicy, fried foods, tomatoes, cucumbers, mint, and acidic fruits/juices like orange/lemon/grapefruit. Avoid eating/drinking anything for at least 2 hours before bed. Sleep with bed propped. Discussed increased risk of cdif and vit B12 deficiency with moth exterminator use of PPI with pt, would like to remain on medication at this time Assessment & Plan (11/14/2020 8:01 AM NYLON MENDER): HPI: Condition is stable Continue on current meds omeprazole 20 mg daily, encouraged healthy diet and exercise Avoid trigger foods including: carbonated beverages, caffeine, spicy, fried foods, tomatoes, cucumbers, and mint Avoid eating/drinking anything for at least 2 hours before bed. Sleep with bed propped. Discussed increased risk of cdif and vit B12 deficiency with moth exterminator use of PPI with pt, would like to remain on medication at this time Assessment & Plan (06/27/2020 11:21 AM CDT): Condition is stable Continue on current meds-omeprazole 20 mg daily, encouraged healthy diet and exercise Avoid trigger foods including: carbonated beverages, caffeine, spicy, fried foods, tomatoes, cucumbers, and mint Avoid eating/drinking anything for at least 2 hours before bed. Sleep with bed propped. Discussed increased risk of cdif and vit B12 deficiency with moth exterminator use of PPI with pt, would like to remain on medication at this time Assessment & Plan (03/21/2020 11:00 AM CDT): Continue on current meds, encouraged healthy diet and exercise Avoid trigger foods including: carbonated beverages, caffeine, spicy, fried foods, tomatoes, cucumbers, and mint Avoid eating/drinking anything for at least 2 hours before bed. Sleep with bed propped. Discussed increased risk of cdif and vit B12 deficiency with residential use of PPI with pt, would like to remain on medication at this time Assessment & Plan (09/20/2019 7:38 AM NYLON MENDER): Continue on current meds-omeprazole 20mg , encouraged healthy diet and exercise Avoid trigger foods including: carbonated beverages, caffeine, spicy, fried foods, tomatoes, cucumbers, and mint Avoid eating/drinking anything for at least 2 hours before bed. Sleep with bed propped. Discussed increased risk of cdif with residential use of PPI with pt, would like to remain on medication at this time Assessment & Plan (06/21/2019 11:17 AM CDT): Continue on current meds-omeprazole, encouraged healthy diet and exercise Avoid trigger foods including: caffeine, spicy, fried foods, tomatoes, cucumbers, and mint Discussed increased risk of cdif with moth exterminator use of PPI with pt, would like to remain on medication at this time Class 2 severe obesity with serious comorbidity and body mass index (BMI) of 36.0 to 36.9 in adult 12/03/2016 Assessment & Plan (09/19/2024 9:24 AM NYLON MENDER): -chronic, not at/near goal goal BMI <30 Healthy, high-protein, lower carbohydrate, lower fat lifestyle and exercise for 150min/week recommended Recommend tracking everything you put in your mouth on an kasia like [employer] -Patient does not want to use a weight loss injection medication -Discuss other options with the patient including phentermine and topiramate. -Patient does not want to start a medication at this time -Keep scheduled appointment prize coordinator. Advised patient to let me know if she would like to see a different prize coordinator to see if she can get in sooner Hand Measurements: A fist or cupped hand = 1 cup 1 cup = 1 -2 servings of fruit juice 1 oz. of cold cereal 2 oz. of cooked cereal, rice or pasta 8 oz. of milk or yogurt A thumb = 1 oz. of cheese Consuming low-fat cheese helps you meet the required servings from the milk, yogurt and cheese group. 1 oz. of low-fat cheese counts as 8 oz. of milk or yogurt. Handful = 1-2 oz. of snack food Thumb tip = 1 teaspoon Keep high-fat foods, such as peanut butter and mayonnaise, at a minimum. One teaspoon is equal to the end of your thumb, from the knuckle up. Three teaspoons equals 1 tablespoon. Palm = 3 oz. of meat Choose lean poultry, fish, shellfish and beef. One palm size portion equals 3 oz. for an adult and 1 -2 oz. for a child under 5. 1 tennis ball or a fist= 1/2 cup of fruit and vegetables Healthy diets include a variety of colorful fruits and vegetables every day. The secret to serving size is in your hand. Snacking can add up. Because hand sizes vary, compare your fist size to an actual measuring cup. Assessment & Plan (08/15/2024 8:02 AM NYLON MENDER): -chronic, not at/near goal goal BMI <30 Healthy, high-protein, lower carbohydrate, lower fat lifestyle and exercise for 150min/week recommended Recommend tracking everything you put in your mouth on an kasia like [employer] -start on zepbound 2.5 mg weekly x 4 wks, then increase to 5 mg weekly Discussed the importance of cutting meals in half starting after first dose. Discussed that this will slow gastric emptying which will make pt feel full longer and fill up faster. Discussed the one bite or one gulp too much scenario that can increase nausea/vomiting. Listen to your body. Reiterated that pt does not have family or personal history of medullary thyroid cancer or pancreatitis. -Referral sent to prize coordinator Hand Measurements: A fist or cupped hand = 1 cup 1 cup = 1 -2 servings of fruit juice 1 oz. of cold cereal 2 oz. of cooked cereal, rice or pasta 8 oz. of milk or yogurt A thumb = 1 oz. of cheese Consuming low-fat cheese helps you meet the required servings from the milk, yogurt and cheese group. 1 oz. of low-fat cheese counts as 8 oz. of milk or yogurt. Handful = 1-2 oz. of snack food Thumb tip = 1 teaspoon Keep high-fat foods, such as peanut butter and mayonnaise, at a minimum. One teaspoon is equal to the end of your thumb, from the knuckle up. Three teaspoons equals 1 tablespoon. Palm = 3 oz. of meat Choose lean poultry, fish, shellfish and beef. One palm size portion equals 3 oz. for an adult and 1 -2 oz. for a child under 5. 1 tennis ball or a fist= 1/2 cup of fruit and vegetables Healthy diets include a variety of colorful fruits and vegetables every day. The secret to serving size is in your hand. Snacking can add up. Because hand sizes vary, compare your fist size to an actual measuring cup. Assessment & Plan (01/18/2024 7:56 AM CDT): -chronic, not at/near goal goal BMI <30 Healthy, high-protein, lower carbohydrate, lower fat lifestyle and exercise for 150min/week recommended Recommend tracking everything you put in your mouth on an kasia like [employer] Hand Measurements: A fist or cupped hand = 1 cup 1 cup = 1 -2 servings of fruit juice 1 oz. of cold cereal 2 oz. of cooked cereal, rice or pasta 8 oz. of milk or yogurt A thumb = 1 oz. of cheese Consuming low-fat cheese helps you meet the required servings from the milk, yogurt and cheese group. 1 oz. of low-fat cheese counts as 8 oz. of milk or yogurt. Handful = 1-2 oz. of snack food Thumb tip = 1 teaspoon Keep high-fat foods, such as peanut butter and mayonnaise, at a minimum. One teaspoon is equal to the end of your thumb, from the knuckle up. Three teaspoons equals 1 tablespoon. Palm = 3 oz. of meat Choose lean poultry, fish, shellfish and beef. One palm size portion equals 3 oz. for an adult and 1 -2 oz. for a child under 5. 1 tennis ball or a fist= 1/2 cup of fruit and vegetables Healthy diets include a variety of colorful fruits and vegetables every day. The secret to serving size is in your hand. Snacking can add up. Because hand sizes vary, compare your fist size to an actual measuring cup. Assessment & Plan (03/20/2023 7:23 AM CDT): HPI: Condition is not at/near goal goal BMI <30 A&P: Healthy, high-protein, lower carbohydrate, lower fat lifestyle and exercise for 150min/week recommended Recommend tracking everything you put in your mouth on an kasia like [employer] Hand Measurements: A fist or cupped hand = 1 cup 1 cup = 1 -2 servings of fruit juice 1 oz. of cold cereal 2 oz. of cooked cereal, rice or pasta 8 oz. of milk or yogurt A thumb = 1 oz. of cheese Consuming low-fat cheese helps you meet the required servings from the milk, yogurt and cheese group. 1 oz. of low-fat cheese counts as 8 oz. of milk or yogurt. Handful = 1-2 oz. of snack food Thumb tip = 1 teaspoon Keep high-fat foods, such as peanut butter and mayonnaise, at a minimum. One teaspoon is equal to the end of your thumb, from the knuckle up. Three teaspoons equals 1 tablespoon. Palm = 3 oz. of meat Choose lean poultry, fish, shellfish and beef. One palm size portion equals 3 oz. for an adult and 1 -2 oz. for a child under 5. 1 tennis ball or a fist= 1/2 cup of fruit and vegetables Healthy diets include a variety of colorful fruits and vegetables every day. The secret to serving size is in your hand. Snacking can add up. Because hand sizes vary, compare your fist size to an actual measuring cup. Assessment & Plan (01/05/2023 7:16 AM CDT): HPI: Condition is not at/near goal goal BMI <30 A&P: Healthy, high-protein, lower carbohydrate, lower fat lifestyle and exercise for 150min/week recommended Recommend tracking everything you put in your mouth on an kasia like [employer] Hand Measurements: A fist or cupped hand = 1 cup 1 cup = 1 -2 servings of fruit juice 1 oz. of cold cereal 2 oz. of cooked cereal, rice or pasta 8 oz. of milk or yogurt A thumb = 1 oz. of cheese Consuming low-fat cheese helps you meet the required servings from the milk, yogurt and cheese group. 1 oz. of low-fat cheese counts as 8 oz. of milk or yogurt. Handful = 1-2 oz. of snack food Thumb tip = 1 teaspoon Keep high-fat foods, such as peanut butter and mayonnaise, at a minimum. One teaspoon is equal to the end of your thumb, from the knuckle up. Three teaspoons equals 1 tablespoon. Palm = 3 oz. of meat Choose lean poultry, fish, shellfish and beef. One palm size portion equals 3 oz. for an adult and 1 -2 oz. for a child under 5. 1 tennis ball or a fist= 1/2 cup of fruit and vegetables Healthy diets include a variety of colorful fruits and vegetables every day. The secret to serving size is in your hand. Snacking can add up. Because hand sizes vary, compare your fist size to an actual measuring cup. Assessment & Plan (07/09/2022 8:30 AM CDT): HPI: Condition is not at/near goal goal BMI <30 A&P: Healthy, high-protein, lower carbohydrate, lower fat lifestyle and exercise for 150min/week recommended Recommend tracking everything you put in your mouth on an kasia like [employer] Lower carb substitutions: [employer] carries a zero net carb bread If you are looking for whole potatoes, like to use in soup or new potato shape/flavor, radishes are a great replacement If you are looking for mashed potatoes, riced cauliflower in the frozen bag section are a great replacement For pasta, try using zucchini noodles, lay them out on a cookie sheet and pat dry with a tea towel to try to remove as much moisture as possible. Heat your pasta sauce on the stove and put the noodles in for 30-45 seconds. If you leave them in much longer they will become mushy Melissa and/or coconut flour instead of regular flour For pizza dough, try fathead pizza dough recipe online. To get a crispy crust, bake on one side for 8-12 min, then flip over and bake on the other side for 8-12 min, then put toppings on and bake until the cheese on top of pizza melts chaffles recipe online For ice cream, try the brand Enlightened To replace coffee creamer and make it low carb, use heavy creamer with sugar free Torani sweetener For chips, try Whisps or pork rinds For yogurt, try Two Good guamanian yogurt Use Pinterest for recipe ideas. Type in low carb... Hand Measurements: A fist or cupped hand = 1 cup 1 cup = 1 -2 servings of fruit juice 1 oz. of cold cereal 2 oz. of cooked cereal, rice or pasta 8 oz. of milk or yogurt A thumb = 1 oz. of cheese Consuming low-fat cheese helps you meet the required servings from the milk, yogurt and cheese group. 1 oz. of low-fat cheese counts as 8 oz. of milk or yogurt. Handful = 1-2 oz. of snack food Thumb tip = 1 teaspoon Keep high-fat foods, such as peanut butter and mayonnaise, at a minimum. One teaspoon is equal to the end of your thumb, from the knuckle up. Three teaspoons equals 1 tablespoon. Palm = 3 oz. of meat Choose lean poultry, fish, shellfish and beef. One palm size portion equals 3 oz. for an adult and 1 -2 oz. for a child under 5. 1 tennis ball or a fist= 1/2 cup of fruit and vegetables Healthy diets include a variety of colorful fruits and vegetables every day. The secret to serving size is in your hand. Snacking can add up. Remember, 1 handful equals 1 oz. of nuts and small candies. For chips and pretzels, 2 handfuls equals 1 oz. Because hand sizes vary, compare your fist size to an actual measuring cup. Assessment & Plan (01/07/2022 7:11 AM CDT): HPI: Condition is not at/near goal goal BMI <30 A&P: Healthy, high-protein, lower carbohydrate, lower fat lifestyle and exercise for 150min/week recommended Substitutions: Recommend tracking everything you put in your mouth on an kasia like [employer] or [employer] carries a zero net carb bread If you are looking for whole potatoes, like to use in soup or new potato shape/flavor, radishes are a great replacement If you are looking for mashed potatoes, riced cauliflower in the frozen bag section are a great replacement For pasta, try using zucchini noodles, lay them out on a cookie sheet and pat dry with a tea towel to try to remove as much moisture as possible. Heat your pasta sauce on the stove and put the noodles in for 30-45 seconds. If you leave them in much longer they will become mushy Melissa and/or coconut flour instead of regular flour For pizza dough, try fathead pizza dough recipe online. To get a crispy crust, bake on one side for 8-12 min, then flip over and bake on the other side for 8-12 min, then put toppings on and bake until the cheese on top of pizza melts chaffles recipe online For ice cream, try the brand Enlightened To replace coffee creamer and make it low carb, use heavy creamer with sugar free Torani sweetener For chips, try Whisps or pork rinds For yogurt, try Two Good guamanian yogurt Use Pinterest for recipe ideas. Type in low carb... Assessment & Plan (07/09/2021 8:45 AM CDT): HPI: Condition is not at/near goal goal BMI <30 A&P: Healthy, high-protein, lower carbohydrate, lower fat lifestyle and exercise for 150min/week recommended Substitutions: Recommend tracking everything you put in your mouth on an kasia like [employer] or [employer] carries a zero net carb bread If you are looking for whole potatoes, like to use in soup or new potato shape/flavor, radishes are a great replacement If you are looking for mashed potatoes, riced cauliflower in the frozen bag section are a great replacement For pasta, try using zucchini noodles, lay them out on a cookie sheet and pat dry with a tea towel to try to remove as much moisture as possible. Heat your pasta sauce on the stove and put the noodles in for 30-45 seconds. If you leave them in much longer they will become mushy Melissa and/or coconut flour instead of regular flour For pizza dough, try fathead pizza dough recipe online. To get a crispy crust, bake on one side for 8-12 min, then flip over and bake on the other side for 8-12 min, then put toppings on and bake until the cheese on top of pizza melts chaffles recipe online For ice cream, try the brand Enlightened To replace coffee creamer and make it low carb, use heavy creamer with sugar free Torani sweetener For chips, try Whisps or pork rinds For yogurt, try Two Good guamanian yogurt Use Pinterest for recipe ideas. Type in low carb... Assessment & Plan (04/04/2021 7:10 AM CDT): HPI: Condition is not at/near goal goal BMI <30 A&P: Healthy, high-protein, lower carbohydrate, lower fat lifestyle and exercise for 150min/week recommended Substitutions: Recommend tracking everything you put in your mouth on an kasia like [employer] or [employer] carries a zero net carb bread If you are looking for whole potatoes, like to use in soup or new potato shape/flavor, radishes are a great replacement If you are looking for mashed potatoes, riced cauliflower in the frozen bag section are a great replacement For pasta, try using zucchini noodles, lay them out on a cookie sheet and pat dry with a tea towel to try to remove as much moisture as possible. Heat your pasta sauce on the stove and put the noodles in for 30-45 seconds. If you leave them in much longer they will become mushy Melissa and/or coconut flour instead of regular flour For pizza dough, try fathead pizza dough recipe online. To get a crispy crust, bake on one side for 8-12 min, then flip over and bake on the other side for 8-12 min, then put toppings on and bake until the cheese on top of pizza melts chaffles recipe online For ice cream, try the brand Enlightened To replace coffee creamer and make it low carb, use heavy creamer with sugar free Torani sweetener For chips, try Whisps or pork rinds For yogurt, try Two Good guamanian yogurt Use Pinterest for recipe ideas. Type in low carb... Assessment & Plan (02/28/2021 10:44 AM CDT): HPI: Condition is not at/near goal of BMI <30 A&P: Healthy, low carbohydrate lifestyle and exercise for 150min/week recommended Substitutions: Recommend tracking everything you put in your mouth on an kasia like [employer] or [employer] carries a zero net carb bread If you are looking for whole potatoes, like to use in soup or new potato shape/flavor, radishes are a great replacement If you are looking for mashed potatoes, riced cauliflower in the frozen bag section are a great replacement For pasta, try using zucchini noodles, lay them out on a cookie sheet and pat dry with a tea towel to try to remove as much moisture as possible. Heat your pasta sauce on the stove and put the noodles in for 30-45 seconds. If you leave them in much longer they will become mushy Melissa and/or coconut flour instead of regular flour For pizza dough, try fathead pizza dough recipe online. To get a crispy crust, bake on one side for 8-12 min, then flip over and bake on the other side for 8-12 min, then put toppings on and bake until the cheese on top of pizza melts chaffles recipe online For ice cream, try the brand Enlightened To replace coffee creamer and make it low carb, use heavy creamer with sugar free Torani sweetener For chips, try Whisps or pork rinds For yogurt, try Two Good guamanian yogurt Use Pinterest for recipe ideas. Type in low carb... Assessment & Plan (01/10/2021 7:12 AM CDT): HPI: Condition is stable A&P: Healthy, low carbohydrate lifestyle and exercise for 150min/week recommended Substitutions: Recommend tracking everything you put in your mouth on an kasia like [employer] carries a zero net carb bread If you are looking for whole potatoes, like to use in soup or new potato shape/flavor, radishes are a great replacement If you are looking for mashed potatoes, riced cauliflower in the frozen bag section are a great replacement For pasta, try using zucchini noodles, lay them out on a cookie sheet and pat dry with a tea towel to try to remove as much moisture as possible. Heat your pasta sauce on the stove and put the noodles in for 30-45 seconds. If you leave them in much longer they will become mushy Melissa and/or coconut flour instead of regular flour For pizza dough, try fathead pizza dough recipe online. To get a crispy crust, bake on one side for 8-12 min, then flip over and bake on the other side for 8-12 min, then put toppings on and bake until the cheese on top of pizza melts chaffles recipe online For ice cream, try the brand Enlightened To replace coffee creamer and make it low carb, use heavy creamer with sugar free Torani sweetener For chips, try Whisps or pork rinds For yogurt, try Two Good guamanian yogurt Use Pinterest for recipe ideas. Type in low carb... Assessment & Plan (11/14/2020 8:02 AM NYLON MENDER): HPI: Condition is stable A&P: Healthy, low carbohydrate lifestyle and exercise for 150min/week recommended Substitutions: Recommend tracking everything you put in your mouth on an kaisa like [employer] carries a zero net carb bread If you are looking for whole potatoes, like to use in soup or new potato shape/flavor, radishes are a great replacement If you are looking for mashed potatoes, riced cauliflower in the frozen bag section are a great replacement For pasta, try using zucchini noodles, lay them out on a cookie sheet and pat dry with a tea towel to try to remove as much moisture as possible. Heat your pasta sauce on the stove and put the noodles in for 30-45 seconds. If you leave them in much longer they will become mushy Melissa and/or coconut flour instead of regular flour For pizza dough, try fathead pizza dough recipe online. To get a crispy crust, bake on one side for 8-12 min, then flip over and bake on the other side for 8-12 min, then put toppings on and bake until the cheese on top of pizza melts chaffles recipe online For ice cream, try the brand Enlightened To replace coffee creamer and make it low carb, use heavy creamer with sugar free Torani sweetener For chips, try Whisps or pork rinds For yogurt, try Two Good guamanian yogurt Use [employer] for recipe ideas. Type in low carb... Assessment & Plan (06/27/2020 10:02 AM CDT): HPI: Condition is stable A&P: Healthy, low carbohydrate lifestyle and exercise for 150min/week recommended Substitutions: [employer] carries a zero net carb bread If you are looking for whole potatoes, like to use in soup or new potato shape/flavor, radishes are a great replacement If you are looking for mashed potatoes, riced cauliflower in the frozen bag section are a great replacement For pasta, try using zucchini noodles, lay them out on a cookie sheet and pat dry with a tea towel to try to remove as much moisture as possible. Heat your pasta sauce on the stove and put the noodles in for 30-45 seconds. If you leave them in much longer they will become mushy Melissa and/or coconut flour instead of regular flour For pizza dough, try fathead pizza dough recipe online. To get a crispy crust, bake on one side for 8-12 min, then flip over and bake on the other side for 8-12 min, then put toppings on and bake until the cheese on top of pizza melts chaffles recipe online For ice cream, try the brand Enlightened Use [employer] for recipe ideas. Type in low carb... Assessment & Plan (03/21/2020 11:04 AM CDT): Healthy, low carbohydrate lifestyle and exercise for 150min/week recommended Assessment & Plan (09/20/2019 7:37 AM NYLON MENDER): Healthy, low carbohydrate lifestyle and exercise for 150min/week recommended Assessment & Plan (06/21/2019 11:10 AM CDT): Healthy, low carbohydrate diet and exercise for 150min/week recommended Atopic rhinitis 02/18/2014 Overview (01/07/2017): Allergic rhinitis Assessment & Plan (08/15/2024 8:00 AM NYLON MENDER): -chronic, stable Discussed environmental controls No smoking around patient, no animals in bedroom, keep windows closed, no hanging clothes on the line Take zyrtec/claritin/kirk in the am Saline rinse in the am Flonase 1 sprays each nostril, aim away from cartilage, spray once-baby sniff, switch to the other nostril and repeat. Saline rinse about 15 min before bed Flonase 1 sprays each nostril, aim away from cartilage, spray once-baby sniff, switch to the other nostril and repeat. If working or playing outside, may need to do saline rinses when coming in and change clothes right away Recommend staying on the above treatment from the beginning of December to Come off of meds if possible during the summer Then restart on meds mid to late May until Come off of meds if possible during the winter Assessment & Plan (01/05/2023 7:15 AM CDT): HPI: Condition is stable A&P: Discussed environmental controls No smoking around patient, no animals in bedroom, keep windows closed, no hanging clothes on the line Take zyrtec/claritin/kirk in the am Saline rinse in the am Flonase 1 sprays each nostril, aim away from cartilage, spray once-baby sniff, switch to the other nostril and repeat. Saline rinse about 15 min before bed Flonase 1 sprays each nostril, aim away from cartilage, spray once-baby sniff, switch to the other nostril and repeat. If working or playing outside, may need to do saline rinses when coming in and change clothes right away Recommend staying on the above treatment from the of December to Come off of meds if possible during the summer Then restart on meds mid to may until Thanksgiving Come off of meds if possible during the winter Assessment & Plan (07/09/2022 11:11 AM CDT): HPI: Condition is not at/near goal Pt reports increase in allergy symptoms, sneezing and congestion, since pausing medications for surgery tomorrow. A&P: Discussed environmental controls No smoking around patient, no animals in bedroom, keep windows closed, no hanging clothes on the line Take zyrtec/claritin/kirk in the am Saline rinse in the am Flonase 1 sprays each nostril, aim away from cartilage, spray once-baby sniff, switch to the other nostril and repeat. Saline rinse about 15 min before bed Flonase 1 sprays each nostril, aim away from cartilage, spray once-baby sniff, switch to the other nostril and repeat. If working or playing outside, may need to do saline rinses when coming in and change clothes right away Recommend staying on the above treatment from the of December to Come off of meds if possible during the summer Then restart on meds to may until Thanksgiving Come off of meds if possible during the winter Assessment & Plan (01/07/2022 7:08 AM CDT): HPI: Condition is stable A&P: Discussed environmental controls No smoking around patient, no animals in bedroom, keep windows closed, no hanging clothes on the line Take zyrtec/claritin/kirk in the am Saline rinse in the am Flonase 1 sprays each nostril, aim away from cartilage, spray once-baby sniff, switch to the other nostril and repeat. Saline rinse about 15 min before bed Flonase 1 sprays each nostril, aim away from cartilage, spray once-baby sniff, switch to the other nostril and repeat. If working or playing outside, may need to do saline rinses when coming in and change clothes right away Recommend staying on the above treatment from the of December to Come off of meds if possible during the summer Then restart on meds mid to may until Thanksgiving Come off of meds if possible during the winter Assessment & Plan (07/09/2021 8:37 AM CDT): HPI: Condition is stable A&P: Discussed environmental controls No smoking around patient, no animals in bedroom, keep windows closed, no hanging clothes on the line Take zyrtec/claritin/kirk in the am Saline rinse in the am Saline rinse about 15 min before bed Flonase 2 sprays each nostril, aim away from cartilage, spray once-baby sniff, switch to the other nostril and repeat. Wait a min or two and then do the second spray in each nostril, followed by a baby sniff If working or playing outside, may need to do saline rinses when coming in and change clothes right away Recommend staying on the above treatment from the of December to Come off of meds if possible during the summer Then restart on meds mid to may until Thanksgiving Come off of meds if possible during the winter Continue on Flonase 1 spray each nostril daily. Assessment & Plan (11/14/2020 7:59 AM NYLON MENDER): HPI: Condition is stable A&P: Discussed environmental controls No smoking around patient, no animals in bedroom, keep windows closed, no hanging clothes on the line Take zyrtec/claritin/allgera in the am Saline rinse in the am Saline rinse about 15 min before bed Flonase 2 sprays each nostril, aim away from cartilage, spray once-baby sniff, switch to the other nostril and repeat. Wait a min or two and then do the second spray in each nostril, followed by a baby sniff If working or playing outside, may need to do saline rinses when coming in and change clothes right away Recommend staying on the above treatment from the of December to Come off of meds if possible during the summer Then restart on meds mid to may until Thanksgiving Come off of meds if possible during the winter Assessment & Plan (06/27/2020 9:57 AM CDT): HPI: Condition is stable A&P: Discussed environmental controls No smoking around patient, no animals in bedroom, keep windows closed, no hanging clothes on the line Take zyrtec/claritin/allgera in the am Saline rinse in the am Saline rinse about 15 min before bed Flonase 2 sprays each nostril, aim away from cartilage, spray once-baby sniff, switch to the other nostril and repeat. Wait a min or two and then do the second spray in each nostril, followed by a baby sniff If working or playing outside, may need to do saline rinses when coming in and change clothes right away Recommend staying on the above treatment from the of December to Come off of meds if possible during the summer Then restart on meds mid to may until Thanksgiving Come off of meds if possible during the winter Assessment & Plan (03/21/2020 10:53 AM CDT): Discussed environmental controls No smoking around patient, no animals in bedroom, keep windows closed, no hanging clothes on the line Take claritin/zyrtec/kirk in the morning Flonase at bedtime Use the saline rinses/netipot in nose twice daily and as needed If working or playing outside, may need to do saline rinses when coming in and change clothes right away Assessment & Plan (09/20/2019 7:41 AM NYLON MENDER): Discussed environmental controls No smoking around patient, no animals in bedroom, keep windows closed, no hanging clothes on the line Take claritin/zyrtec/kirk in the morning Flonase at bedtime Use the saline rinses/netipot in nose twice daily and as needed If working or playing outside, may need to do saline rinses when coming in and change clothes right away Assessment & Plan (06/21/2019 11:34 AM CDT): Discussed environmental controls No smoking around patient, no animals in bedroom, keep windows closed, no hanging clothes on the line Take claritin/zyrtec/kirk in the morning Flonase at bedtime Use the saline rinses/netipot in nose twice daily and as needed If working or playing outside, may need to do saline rinses when coming in and change clothes right away 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 Discussed the risks of hypertension. Encouraged to increase activity to at least 150 minutes per week of exercise Assessment & Plan (01/05/2023 7:14 AM CDT): HPI: Condition is stable A&P: Discussed/ordered labs, encouraged healthy, low carbohydrate lifestyle and at least 150min/week of exercise, continue on clopidogrel 75 mg daily, atorvastatin 80 mg daily, Zetia 10 mg daily Assessment & Plan (07/09/2022 8:19 AM CDT): HPI: Condition is stable A&P: Discussed/ordered labs, encouraged healthy, low carbohydrate lifestyle and at least 150min/week of exercise, continue on clopidogrel 75mg daily, atorvastatin 80mg daily, zetia 10mg daily Assessment & Plan (01/07/2022 7:07 AM CDT): HPI: Condition is stable A&P: Discussed/ordered labs, encouraged healthy, low carbohydrate lifestyle and at least 150min/week of exercise, continue on clopidogrel 75mg daily, atorvastatin 80mg daily, zetia 10mg daily Assessment & Plan (07/09/2021 8:35 AM CDT): HPI: Condition is stable A&P: Discussed/ordered labs, encouraged healthy, low carbohydrate lifestyle and at least 150min/week of exercise, continue on Plavix 75 mg daily, atorvastatin 80 mg daily. Assessment & Plan (11/14/2020 7:59 AM NYLON MENDER): HPI: Condition is stable A&P: Discussed/ordered labs, encouraged healthy, low carbohydrate lifestyle and at least 150min/week of exercise, continue on Plavix 75 mg daily, atorvastatin 80mg daily Assessment & Plan (06/27/2020 9:56 AM CDT): HPI: Condition is stable A&P: Discussed/ordered labs, encouraged healthy, low carbohydrate lifestyle and at least 150min/week of exercise, continue on Plavix 75 mg daily Assessment & Plan (03/21/2020 10:52 AM CDT): . Discussed/ordered labs, Condition is stable, encouraged healthy, low carbohydrate lifestyle and at least 150min/week of exercise, continue on plavix 75mg daily Assessment & Plan (09/20/2019 7:41 AM NYLON MENDER): Discussed/ordered labs, Condition is stable, encouraged healthy, low carbohydrate lifestyle and at least 150min/week of exercise, continue on plavix 75mg daily Assessment & Plan (06/21/2019 11:33 AM CDT): Discussed labs, Condition is stable, encouraged healthy, low carbohydrate diet and at least 150min/week of exercise, continue on plavix Labs ordered Hypothyroidism 02/18/2014 Overview (01/07/2017): HYPOTHYROIDISM NOS Assessment & Plan (08/15/2024 8:00 AM NYLON MENDER): -chronic, stable -Discussed/ordered labs -continue on levothyroxine 75 mcg daily. Assessment & Plan (01/18/2024 7:55 AM CDT): -chronic, stable -Discussed/ordered labs -continue on levothyroxine 75 mcg daily. Assessment & Plan (07/07/2023 12:53 PM CDT): Chronic problem-stable with current regimen TSH 4.27 Continue levothyroxine 75 mcg tablet daily Continue to monitor Labs ordered Follow-up with PCP in 6 months for annual Assessment & Plan (03/20/2023 12:10 PM CDT): HPI: Condition is not at/near goal A&P: Discussed/ordered labs, encouraged healthy, low carbohydrate lifestyle and at least 150min/week of exercise, continue on levothyroxine 75 mcg daily. Patient will be repeating TSH today. Order for [facility] printed for patient. Assessment & Plan (01/05/2023 1:50 PM CDT): HPI: Condition is not at/near goal Patient was recently decreased to levothyroxine 75 mcg daily A&P: Discussed/ordered labs, encouraged healthy, low carbohydrate lifestyle and at least 150min/week of exercise, continue on levothyroxine 75 mcg daily Repeat TSH in 6 weeks Lab Results Component Value Date TSH 0.28 (L) 12/31/2022 Assessment & Plan (07/09/2022 8:18 AM CDT): HPI: Condition is stable A&P: Discussed/ordered labs, encouraged healthy, low carbohydrate lifestyle and at least 150min/week of exercise, continue on levothyroxine 88mcg daily Please take levothyroxine on an empty stomach. This means 1 hour before eating or 2 hours after eating. Food in the stomach will interfere with absorption of the levothyroxine. Calcium, antacids and iron supplements will also interfere with the absorption of levothyroxine. Please take these at a different time of the day. Assessment & Plan (01/07/2022 7:06 AM CDT): HPI: Condition is stable A&P: Discussed/ordered labs, encouraged healthy, low carbohydrate lifestyle and at least 150min/week of exercise, continue on levothyroxine 88mcg daily Please take levothyroxine on an empty stomach. This means 1 hour before eating or 2 hours after eating. Food in the stomach will interfere with absorption of the levothyroxine. Calcium, antacids and iron supplements will also interfere with the absorption of levothyroxine. Please take these at a different time of the day. Assessment & Plan (07/09/2021 8:34 AM CDT): HPI: Condition is stable A&P: Discussed/ordered labs, encouraged healthy, low carbohydrate lifestyle and at least 150min/week of exercise, continue on levothyroxine 75 mcg daily. Please take levothyroxine on an empty stomach. This means 1 hour before eating or 2 hours after eating. Food in the stomach will interfere with absorption of the levothyroxine. Calcium, antacids and iron supplements will also interfere with the absorption of levothyroxine. Please take these at a different time of the day. Assessment & Plan (11/14/2020 7:58 AM NYLON MENDER): HPI: Condition is stable A&P: Discussed/ordered labs, encouraged healthy, low carbohydrate lifestyle and at least 150min/week of exercise, continue on euthyrox 75 mcg daily Assessment & Plan (06/27/2020 9:56 AM CDT): HPI: Condition is stable A&P: Discussed/ordered labs, encouraged healthy, low carbohydrate lifestyle and at least 150min/week of exercise, continue on euthyrox 75 mcg daily Assessment & Plan (03/21/2020 10:52 AM CDT): Discussed/ordered labs, Condition is stable, encouraged healthy, low carbohydrate lifestyle and at least 150min/week of exercise, continue on levothyroxine 75mcg daily Assessment & Plan (09/20/2019 7:41 AM NYLON MENDER): Discussed/ordered labs, Condition is stable, encouraged healthy, low carbohydrate lifestyle and at least 150min/week of exercise, continue on levothyroxine 75mcg daily Assessment & Plan (06/21/2019 11:15 AM CDT): Discussed labs, Condition is stable, encouraged healthy, low carbohydrate diet and at least 150min/week of exercise, continue on levothyroxine 75mcg daily. She is tired throughout the day. 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 Overview (01/10/2017): MIXED HYPERLIPIDEMIA Assessment & Plan (08/15/2024 8:04 AM NYLON MENDER): -chronic, stable -Discussed/ordered labs -continue on atorvastatin 80 mg daily, Zetia 10 mg daily -recommend healthy diet with decreased intake of processed foods and increase exercise Assessment & Plan (01/18/2024 2:26 PM CDT): -chronic, worsening -Discussed/ordered labs -continue on atorvastatin 80 mg daily, Zetia 10 mg daily -recommend healthy diet with decreased intake of processed foods and increase exercise -recheck lipid panel in 6 months to determine if further medication changes are needed Assessment & Plan (07/07/2023 12:51 PM CDT): Chronic problem-stable with current regimen Continue zetia 10 mg daily, atorvastatin 80 mg daily Total chol 150 HDL 46-improved LDL 70 Trigs 152 Encouraged heart healthy [id number], low carb, low-cholesterol Assessment & Plan (01/05/2023 7:15 AM CDT): HPI: Condition is stable A&P: Discussed/ordered labs, encouraged healthy, low carbohydrate lifestyle and at least 150min/week of exercise, continue on atorvastatin 80 mg daily, Zetia 10 mg daily Assessment & Plan (07/09/2022 8:23 AM CDT): HPI: Condition is stable A&P: Discussed/ordered labs, encouraged healthy, low carbohydrate lifestyle and at least 150min/week of exercise, continue on atorvastatin 80mg daily, ezetimibe 10mg daily Assessment & Plan (01/07/2022 10:12 AM CDT): HPI: Condition is improving A&P: Discussed/ordered labs, encouraged healthy, low carbohydrate lifestyle and at least 150min/week of exercise, continue on atorvasatatin 80mg daily, zetia 10mg daily Assessment & Plan (07/09/2021 8:38 AM CDT): HPI: Condition is stable A&P: Discussed/ordered labs, encouraged healthy, low carbohydrate lifestyle and at least 150min/week of exercise, continue on atorvastatin 80 mg daily. Assessment & Plan (11/14/2020 7:59 AM NYLON MENDER): HPI: Condition is stable A&P: Discussed/ordered labs, encouraged healthy, low carbohydrate lifestyle and at least 150min/week of exercise, continue on atorvastatin 80 mg daily Assessment & Plan (06/27/2020 9:58 AM CDT): HPI: Condition is improving A&P: Discussed/ordered labs, encouraged healthy, low carbohydrate lifestyle and at least 150min/week of exercise, continue on atorvastatin 80 mg daily. Labs have improved nicely since increasing from 40 mg Assessment & Plan (03/21/2020 10:58 AM CDT): Discussed/ordered labs, Condition is improving, but not at goal encouraged healthy, low carbohydrate lifestyle and at least 150min/week of exercise, would like to increase atorvastatin to 80mg to bring the LDL and non-HDL down closer to 70. Push water to decrease the risk of muscle pain. If you begin with muscle pains, alternate 40mg and 80mg. Assessment & Plan (09/20/2019 7:40 AM NYLON MENDER): Discussed/ordered labs, Condition is improving, encouraged healthy, low carbohydrate lifestyle and at least 150min/week of exercise, continue on atorvastatin 40mg daily Assessment & Plan (06/21/2019 11:15 AM CDT): Discussed labs, Condition is stable, encouraged healthy, low carbohydrate diet and at least 150min/week of exercise, continue on simvastatin 40mg daily. Labs ordered. Discussed that if LDL is elevated, we will be making med changes to be aggressive with patients history of stroke Resolved Problems Problem Noted Date Diagnosed Date Resolved Date Need for influenza vaccination 07/07/2023 01/18/2024 Assessment & Plan (07/07/2023 12:53 PM CDT): Patient verbalized agreement to proceed Ordered and administered this visit Acute pain of right knee 02/16/2023 Assessment & Plan (03/20/2023 12:09 PM CDT): -improving, but not at goal -number given to patient to reschedule appointment with ortho -may use OTC Tylenol/ibuprofen as needed -recommend using ice and heat for pain -may continue using knee brace and resting the knee -follow up as needed Assessment & Plan (02/16/2023 2:18 PM CDT): New worsening Agree with plan of getting xray of the right knee and the referral to orthopedic F/u w/ pcp in 1 month. Can consider PT Hypersomnia with sleep apnea 09/15/2019 01/18/2024 Assessment & Plan (07/07/2023 12:48 PM CDT): Chronic problem-stable Patient states she has stopped using her CPAP and has canceled her appointments with Dr. Jaime sleep medicine Patient states she was told she did not have obstructive sleep apnea Continue to monitor Patient is encouraged to continue following up with Dr. Jaime sleep Medicine Patient states that she will call and schedule an appointment if she feels like she needs to follow-up with sleep medicine Assessment & Plan (01/05/2023 1:51 PM CDT): Pt states using cpap for 6 hours/night 6 nights/wk Pt states less daytime somnolence, feels better when using it. Would recommend the continued use of cpap Continue seeing Dr. Jaime sleep Medicine Assessment & Plan (07/09/2022 11:00 AM CDT): Pt states using cpap for 6 hours/night 6 nights/wk Pt states less daytime somnolence, feels better when using it. Would recommend the continued use of cpap Pt sees Dr. Jaime sleep med Assessment & Plan (01/07/2022 10:13 AM CDT): Pt states using cpap for 7 hours/night 7 nights/wk Pt states less daytime somnolence, feels better when using it. Would recommend the continued use of cpap Pt sees Dr. Jaime sleep med Assessment & Plan (07/09/2021 10:14 AM CDT): Pt states using cpap for 7 hours/night 6 nights/wk Pt states less daytime somnolence, feels better when using it. Would recommend the continued use of cpap Assessment & Plan (11/14/2020 3:20 PM NYLON MENDER): Pt states using cpap for 7 hours/night 5 nights/wk Pt states less daytime somnolence, feels better when using it. Would recommend the continued use of cpap She has been having a rash around her nose from the mask. Her sleep med doctor is getting her a new mask Pt sees Dr. Jaime (sleep med) Assessment & Plan (06/27/2020 11:16 AM CDT): Condition is stable Patient states she is using CPAP for about 77 hours per night for 5 nights per week She states less daytime somnolence, feels better when she is using it. We will recommend she continue use of CPAP Assessment & Plan (03/21/2020 10:55 AM CDT): Pt states using cpap for 7 hours/night 5 nights/wk Pt states less daytime somnolence, feels better when using it. Would recommend the continued use of cpap She has been down to 5 nights a week recently due to allergies. Prior to a few weeks ago, was 7 nights a week Assessment & Plan (09/20/2019 8:53 AM NYLON MENDER): Pt saw Dr. Jaime last week, is awaiting cpap Positive colorectal cancer s creening using DNA-based stool test 01/15/2017 06/21/2019 Overview (06/21/2019): Had colonoscopy followup that was normal in 2017. Was told she could follow up in 10 years. Cyst of skin 10/17/2014 06/21/2019 Digital mucous cyst 10/17/2014 06/21/20 19 Basal cell carcinoma (BCC) of face 10/17/2014 06/21/2019 Overview (06/21/2019): Had mohs procedure 6-7 yrs ago, sees dermatology yearly Carotid artery disease 02/18/201406/21 Overview (01/10/2017): Carotid artery disease Encounters Date Type Department Care Team Description 09/19/2024 9:00 AM NYLON MENDER Office Visit [facility] Primary Care at [address] [place] [address] Adela Colón NP Mild episode of recurrent major depressive disorder (Primary Dx); Anxiety; Difficulty swallowing pills; Class 2 severe obesity with serious comorbidity and body mass index (BMI) of 36.0 to 36.9 in adult, unspecified obesity type (HCC) 09/16/2024 Orders Only [facility] [address] [address] Sylwia Ashraf, HERMANN Skin neoplasm 09/15/2024 8:30 AM NYLON MENDER Office Visit [facility] [address] [place] [address] [address] [place] [address] Sylwia Ashraf, HERMANN Skin neoplasm (Primary Dx) from Last 3 Months Immunizations Immunization Administration Dates Next Due Influenza, Quadrivalent, Spl it, Intramuscular 06/17/2016,06/15/2015 Influenza, Quadrivalent, Spl it, Preservative Free, Intramuscular 07/07/2023,07/09/2021,08/02/2020,06/22,07/15/2018,07/15/2018,07/31/2017 ,07/31/2017,06/17/2016,06/17/2016 Influenza, Split 07/25/2013,07/12/2012 Influenza, Trivalent, High D ose, Split, Preservative Free, Intramuscular 08/08/2024 Influenza, Trivalent, IM (MDV) 08/14/2014 Influenza, Trivalent, Preser vative Free, Intramuscular 07/25/2013 Influenza, Unspecified 07/08/2022,2020,07/12/2018,08/01 Lynsey (J&J) SARS-CoV-2 Vaccination 09/05/2021, 12/09/2020,12/09/2020 PPD TEST 10/26/2017 Tdap 03/21/2020,11/28/2009 ZOSTER LIVE 10/28/2017 ZOSTER Recombinant 03/21/2020,11/03/2019 Surgical History Surgery Date Site/Laterality Comments CARPAL TUNNEL RELEASE 10/05/1995 - 10/04/1996 Right Carpal tunnel release TUBAL LIGATION 10/05/1986 - 10/04/1987 Bilateral tubal ligation ENDOMETRIAL ABLATION 10/05/2003 - 10/04/2004 UTERINE ABLATION TONSILLECTOMY 10/05/1969 - 10/04/1970 Medical History Medical History Date Comments Hx Other Medical 2003 TIA 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 Was told she could follow up in 10 years. Digital mucous cyst 10/17/2014 Basal cell carcinoma (BCC) of face 10/17/2014 Had mohs procedure 6-7 yrs ago, sees dermatology yearly Carotid artery disease 02/18/2014 Carotid a rtery disease Sleep apnea with use of cont inuous positive airway pressure (CPAP) PONV (postoperative nausea a nd vomiting) Covid-19 03/2022 HOME TEST ONLY GERD (gastroesophageal reflu x disease) Anxiety Depression Family History Medical History Relation Name Comments Diabetes Brother 1 Angel Park Heart disease Brother 1 Angel Park Hypertension Brother 1 Angel [place] Diabetes Brother 2 Pedro Park Diabetes mellit us; Hypertension Brother 2 Pedro [place] Hypertension Brother 3 Roman [place] Hypertension; Endometriosis Daughter Alycia Arthritis Father Bc Park Cancer Father Bc Park Hearing loss Father Bc Park Heart disease Father Bc Park Other Father Bc Park Alive and well; Skin cancer Father Bc Park Cancer -skin; Cancer Mother Marciano Park Non-Hodgkin's Lymphoma Mother Marciano Park Other Mother Marciano Park Alive and well; Diabetes type II Other 1 Family hist ory of Diabetes -Type 2; Hypertension Other 2 Family history of Hypertension; Celiac disease Son 1 Vincent Other Son 1 Vincent Family history of Cancer -skin; Hypertension Son 2 Jony Anesthesia problems Neg Hx Relation Name Status Comments Brother 1 Angel Park Alive Brother 2 Pedro Park Alive Brother 3 Roman Park Alive Daughter Alycia Alive Father Bc Park Mother Marciano Park Alive Other 1 Other 2 Son 1 Vincent Other Son 2 Jony Alive Social History Tobacco Use Types Packs/Day Years Used Date Smoking Tobacco: Never Smokeless Tobacco: Never Tobacco Cessation:Counseling Given: Not Answered Alcohol Use Standard Drinks/Week Comments No 0 (1 standard drink = 0.6 oz pur e alcohol) AUDIT-C Answer Date Recorded Q1: How often do you have a drink containing alcohol? Never 09/19/2024 Q2: How many drinks containi ng alcohol do you have on a typical day when you are drinking? Patient does not drink Q3: How often do you have si x or more drinks on one occasion? Never 09/19/2024 PHQ-2 Answer Date Recorded PHQ-2 Total Score (If total score is 3 or more points, staff should administer the PHQ-9) 1 09/19/2024 Comments No Sex and Gender Information Value Date Recorded Sex Assigned at Not on file Legal Sex Female 11:33 PM NYLON MENDER Gender Identity Not on file Sexual Orientation Not on file Obstetrics History Para Term AB IAB SAB Ectopic Multiple Livin g Live Births 3 3 3 3 3 Date Outcome GA Total Labor Labor/2nd/3rd Weight Sex Type Anes PTL Aminta A1 A5 Name Clin 1 Term 3.6 kg (7 lb 15 oz) M Living Complications:None 4 Term 3.629 kg (8 lb) M Living Complications:None 7 Term 3.827 kg (8 lb 7 oz) F Living Complications:None Last Filed Vital Signs Vital Sign Reading Time Taken Comments Blood Pressure 128/74 09/19/2024 8:58 AM NYLON MENDER Pulse 68 09/19/2024 8:58 AM NYLON MENDER Temperature 36.2 C (97.1 F) 09/19/2024 8:58 AM NYLON MENDER Respiratory Rate 16 09/19/2024 8:58 AM NYLON MENDER Oxygen Saturation 97% 09/19/2024 8:58 AM NYLON MENDER Inhaled Oxygen Concentration - - Weight 84.4 kg (186 lb) 09/19/2024 8:58 AM NYLON MENDER Height 152.4 cm (5') 09/19/2024 8:58 AM NYLON MENDER Body Mass Index 36.33 09/19/2024 8:58 AM NYLON MENDER Plan of Treatment Health Maintenance Due Date Last Done Comments Pneumococcal vaccine 65+ (1 of 1 - PCV) 2007 Covid-19 Vaccine (2023-2 5 season) 2024 09/05/2021, 12/09/2020, 12/09/2020 Well Visit 65+ 01/17/2025 01/18/2024, 01/03, 01/06/2023, Additional history exists Osteoporosis Screening-Bone Density Scan 02/20/2025 02/20/2023 Breast Cancer Screening-Mammogram 03/07/2025 03/07/2024, 02/20/2023, 02/07/2022, Additional history exists Depression Screening 09/19/2025 09/19/2024, 08/08/2024, 01/18/2024, Additional history exists Fall Risk Assessment 09/19/2025 09/19/2024, 08/08/2024, 01/18/2024, Additional history exists Colon Cancer Screening-Colonoscopy 01/19/2027 01/19/2017 DTaP/Tdap/Td Vaccine (3 - Td or Tdap) 03/21/2030 03/21/2020, 11/28/2009 Colon Cancer Screening-CT Colonography Discontinued 01/19/2017 Colon Cancer Screening-DNA Stool Discontinued 01/20/20 Colon Cancer Screening-FIT Discontinued 01/19/2017 Colon Cancer Screening-Sigmoidoscopy Discontinued 01/19/2017 Hepatitis C Screening Completed 09/14/2019 Zoster Vaccine Completed 03/21/2020, 10/07, 10/28/2017 Hepatitis B Screening Completed 08/08/2024 Influenza Vaccine Completed 08/08/2024, , 07/08/2022, Additional history exists Procedures Procedure Name Priority Date/Time Associated Diagnosis Comments SURGICAL PATHOLOGY Routine 09/15/2024 12 :00 AM NYLON MENDER Skin neoplasm SCREENING MAMMOGRAM BILATERAL W STEWART Schedule Routine, Read Routine (OP Routine) 03/07/2024 9:14 AM CDT Encounter for screening mammogram for malignant neoplasm of breast DEXA AXIAL SKELETON BONE DENSITY 1 OR MORE SITES Schedule Routine, Read Routine (OP Routine) 02/20/2023 9:58 AM CDT Postmenopausal HEPATITIS C ANTIBODY Routine 09/14/2019 7:35 AM NYLON MENDER COLONOSCOPY REPORT 01/19/2017 from Last 3 Months or Most Recently Relevant to Health Maintenance Results * Surgical pathology (09/15/2024 12:00 AM NYLON MENDER) Tissue (Skin, shave biopsy) 09/15/2024 09/16/2024 5:55 AM NYLON MENDER [facility] - 09/19/2024 11:40 AM NYLON MENDER [facility] results best viewed via link to PDF [facility] [address] [place] [address], [address] [address] [email or web address] Note to Patients: This report may contain a detailed description of human tissue sent by a health care provider to the laboratory for pathologic evaluation. The content of this report is essential for diagnosis and may provide important critical findings. This information may be unfamiliar to patients to review without a medical professional present. It is advised that the patient review this report in the presence of a health care provider who can answer questions and explain the details. FINAL REPORT Patient Information: PATIENT NAME: ZENOBIA LARES SEX: F : 1955 (Age: 69) Specimen Information: COLLECTED: 09/15/2024 RECEIVED: 09/16/2024 REPORTED: 09/19/2024 Submitting Physician Information: Sylwia Ashraf, [address], Medical Office Building [address], [address] [place] [address], DERMATOPATHOLOGY REPORT RESULTS DIAGNOSIS: A. SKIN, LEFT ORAL COMMISURE, SHAVE BIOPSY: SEBORRHEIC KERATOSIS B. SKIN, CENTRAL UPPER BACK, SHAVE BIOPSY: VERRUCOUS KERATOSIS dh/spng By this signature, I attest that the above diagnosis is based upon my personal examination of the slides(and/or other material indicated in the diagnosis). Дмитрий Maynard MD, PhD Report Electronically Reviewed and Signed Out By Дмитрий Maynard MD, PhD 09/19/2024 11:40:48 CLINICAL INFORMATION A-B. AK, BCC, DN, SCC, SK SPECIMEN DATA MICROSCOPIC DESCRIPTION: A. There is hyperkeratosis, papillated and reticulated epithelial hyperplasia and horn pseudocysts. (L82.1) B. There is epidermal hyperplasia and hyperkeratosis. (L82.1) GROSS DESCRIPTION: A. Received in a formalin-containing bottle is a superficial fragment of pale rosenberg, finely scaling, and semi-translucent skin measuring 0.5 by 0.3 by 0.2 cm. The surgical margin is inked blue. The specimen bears a rosenberg-brown, scaly papule that may abut the peripheral margin measuring 0.4 by 0.2 by 0.1 cm. The specimen is sectioned into 2 pieces and submitted entirely in a single cassette. Due to shrinkage, measurements may be different than those at the time of procedure. B. Received in a formalin-containing bottle is a superficial fragment of pale rosenberg, finely scaling, and hair-bearing skin measuring 1.0 by 0.7 by 0.3 cm. The surgical margin is inked blue. The specimen bears a centrally located, rosenberg-brown, scaly papule measuring 0.5 by 0.5 by 0.2 cm. The specimen is sectioned into 3 pieces and submitted entirely in a single cassette. Due to shrinkage, measurements may be different than those at the time of procedure. [facility] ICD-9 ZSD.232 ZSD.1411 Clerical Data A; 31783 B; 14898 The characteristics of special, immunohistochemical, and immunofluorescence stains and in-situ hybridization tests performed by the [facility] were deemed acceptable in ongoing advanced quality engineer measures and in compliance with regulations drawn from the Clinical Laboratory Improvement Act ig9759 (CLIA '88). Control reactions for all stains performed were deemed adequate and appropriate by a pathologist prior to evaluation of patient tissue. Some diagnoses were rendered with the assistance of laboratory-developed tests utilizing analyte-specific reagents; the performance characteristic of these tests were determined by [facility] and are not cleared or approved by the US Food an Drug administration. Laboratory developed test may only be performed in a facility that is certified by the [facility] as a high-complexity laboratory under CLIA '88. These tests are used for clinical purposes and are not investigational. Sylwia Ashraf NP LAB PATHOLOGY ORD ERABLES Final Result [facility] [address] [place] [id number] * Screening Mammogram Bilateral W Stewart (03/07/2024 9:14 AM CDT) Anatomical Region Laterality Modality Breast Bilateral Mammography 03/07/2024 9:21 AM CDT Impressions 03/07/2024 9:21 AM CDT There is no mammographic evidence of malignancy. A 1 year screening mammogram is recommended. BI-RADS: 1 - Negative. The patient has been or will be contacted. The patient will be entered into a reminder system with a target due date of 1 year for her next mammogram. Electronically signed by: AUDREY POOLE Narrative 03/07/2024 9:21 AM CDT EXAMINATION: SCREENING MAMMOGRAM BILATERAL W STEWART ORDERING HEALTHCARE PROVIDER: VERNELL HOROWITZ HISTORY: Routine screening mammography. COMPARISON: 02/20/2023, 02/07/2022, 01/26/2021. TECHNIQUE: CC and MLO views of both breasts were obtained with digital technique using digital breast tomosynthesis with C view. Computer aided detection was utilized. FINDINGS: DENSITY: The breasts are almost entirely fatty. BREASTS: There is no new suspicious finding in either breast on mammogram. us Vernell Horowitz NP IMG MAMMO PROCEDURES Final Resul t * Dexa Axial Skeleton Bone Density 1 Or 2 Site (02/20/2023 9:58 AM CDT) Anatomical Region Laterality Modality Body N/A Other 02/21/2023 2:21 PM CDT Narrative 02/21/2023 2:23 PM CDT EXAM DESCRIPTION: DEXA AXIAL SKELETON BONE DENSITY 1 OR MORE SITES REASON FOR STUDY: 68 y/o year old F with given history of screening. 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 IMPRESSION: Normal bone mass. REFERENCE: Bone mineral density: Normal (T-score above or = -1.0) Low bone mass (T-score between -1.0 and -2.5) replaces the previously used term osteopenia Osteoporosis (T-score = or below -2.5) Medical evaluation for secondary causes of low bone mineral density may be appropriate. FRAX is a World Health Organization validated fracture risk assessment tool that calculates a person's 10 year probability of a major osteoporosis related fracture and hip fracture. According to the National Osteoporosis Foundation guidelines, postmenopausal women and men age 50 or older with low bone mass and a 10 year probability of a major osteoporosis related fracture = or greater than 20% or a 10 year probability of a hip fracture = or greater than 3% should be considered for treatment. For further information, including treatment recommendations, please refer to the 2019 ISCD Official Positions (http://www.iscd.org) and the NOF's Clinician's Guide to Prevention and Treatment of Osteoporosis (http://www.nof.org/professionals/clinical-guidelines) THIS IS AN ELECTRONICALLY VERIFIED FINAL REPORT 02/21/2023 2:23 PM - Electronically signed by Toby Aceves M.D. MF: [id number] Report ID: [id number] Reading Location: [place] [address] Procedure Note Toby Aceves MD - 02/21/2023 EXAM DESCRIPTION: DEXA AXIAL SKELETON BONE DENSITY 1 OR MORE SITES REASON FOR STUDY: 68 y/o year old F with given history of screening. 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 IMPRESSION: Normal bone mass. REFERENCE: Bone mineral density: Normal (T-score above or = -1.0) Low bone mass (T-score between -1.0 and -2.5) replaces thepreviously used term osteopenia Osteoporosis (T-score = or below -2.5) Medical evaluation for secondary causes of low bone mineral density may be appropriate. FRAX is a World Health Organization validated fracture risk assessmenttool that calculates a person's 10 year probability of a major osteoporosisrelated fracture and hip fracture. According to the National OsteoporosisFoundation guidelines, postmenopausal women and men age 50 or older with low bonemass and a 10 year probability of a major osteoporosis related fracture = or greater than 20% or a 10 year probability of a hip fracture = or greaterthan 3% should be considered for treatment. For further information, including treatment recommendations, please referto the 2019 ISCD Official Positions (http://www.iscd.org) and the NOF's Clinician's Guide to Prevention and Treatment of Osteoporosis (http://www.nof.org/professionals/clinical-guidelines) THIS IS AN ELECTRONICALLY VERIFIED FINAL REPORT 02/21/2023 2:23 PM - Electronically signed by Toby Aceves M.D. MF: [id number] Report ID: [id number] Reading Location: [place] [address] Adela Colón NP IMG DXA PROCEDURES Final Res ult * Hepatitis C antibody (09/14/2019 7:35 AM NYLON MENDER) Hep C Ab NON-REACT RIN NON-REACT RIN [facility] SIGNAL TO CUT-OFF 0.03 <1.00 [facility] Comment: HCV antibody was non-reactive. There is no laboratory evidence of HCV infection. In most cases, no further action is required. However, if recent HCV exposure is suspected, a test for HCV RNA (test code 66539) is suggested. For additional information please refer to http://education.KrowdPad/faq/QDM15e0 (This link is being provided for informational/ educational purposes only.) 09/14/2019 7:35 AM NYLON MENDER 09/14/2019 7:37 AM NYLON MENDER Narrative [facility] - 09/20/2019 8:03 AM NYLON MENDER FASTING:YES FASTING: YES Resulting Agency Comment Performing Organization Information: Site ID: [place] Name: [employer] Address: [address] [place] [address] [place] [address] Director: Jamie Vazquez D.O., MPH Keesha Dey NP LAB MICROBIOLOGY - GENERAL ORDERABLES Final Result [facility] * COLONOSCOPY REPORT (01/19/2017) Anatomical Region Laterality Modality Other Narrative 01/19/2017 Ordered by an unspecified provider. 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 [address] [place] [address] PCP - General Family Medicine 09/24/22 Vernell Horowitz NP NPI: [id number] [place] [address] [address] [address] Obstetrics and Gynecology 01/18/24
--- OUTSIDE RECORDS SUMMARY | 2024-12-07 09:43 | XMS_ITS | Referral Summary ---
Author Organization [facility] al Address [address] [place] [address] Care Team Providers Care Cut Filer Name Role Phone Adela Colón NP Primary Care Provider [phone] Vernell Newton MVA STILL OPERATOR Unavailable Encounters Date Type Department Care Team Description 09/19/2024 9:00 AM HEALTH EDUCATION AIDE Office Visit [facility] Primary Care at [address] [place] [address] Adela Colón NP Mild episode of recurrent major depressive disorder (Primary Dx); Anxiety; Difficulty swallowing pills; Class 2 severe obesity with serious comorbidity and body mass index (BMI) of 36.0 to 36.9 in adult, unspecified obesity type (HCC) 09/16/2024 Orders Only G[facility] OUTREACH [address] [place] [address] Sylwia Ashraf NP Skin neoplasm 09/15/2024 8:30 AM HEALTH EDUCATION AIDE Office Visit [facility] [address] [place] [address] A [address] [place] [address] Sylwia Ashraf NP Skin neoplasm (Primary Dx) from Last 3 Months Allergies No known active allergies Medications fluticasone propionate (FLONASE) 50 mcg/actuation nasal sprayIndications:A llergic rhinitis, unspecified seasonality, unspecified trigger Administer 1 spray into each nostril daily 16 g 3 09/17/20 19 Active cholecalciferol, vitamin D3, (VITAMIN D3 [...] 09/19/2024 Assessment & Plan (09/19/2024 9:25 AM HEALTH EDUCATION AIDE): -Chronic, stable -Patient reports she feels like [...] (07/04/2022): Added automatically from request for surgery [id number] Assessment & Plan (07/09/2022 8:16 AM CDT): Pt having surgery tomorrow with Dr. Cárdenas hand surgeon Cubital tunnel syndrome on left 07/04/2022 Overview (07/04/2022): Added automatically from request for surgery [id number] Assessment & Plan (07/09/2022 8:16 AM CDT): Pt having surgery tomorrow with Dr. 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 Cárdenas hand surgeon Prediabetes 01/07/2022 Assessment & Plan (08/15/2024 8:03 AM HEALTH EDUCATION AIDE): -chronic, stable -Discussed/ordered labs -encouraged healthy, low [...] 09/15/2019 Assessment & Plan (08/15/2024 8:02 AM HEALTH EDUCATION AIDE): -chronic, stable -patient is no longer using [...] cpap Assessment & Plan (11/14/2020 3:20 PM HEALTH EDUCATION AIDE): Pt states using cpap for 7 hours/night [...] week Assessment & Plan (09/20/2019 8:55 AM HEALTH EDUCATION AIDE): Pt saw Dr. Jaime last week, is awaiting cpap Vitamin D deficiency 08/02/2019 Assessment & Plan (08/15/2024 8:02 AM HEALTH EDUCATION AIDE): -chronic, stable -Discussed/ordered labs -continue on vitamin [...] 150min/week of exercise, continue on vit d3 26425 units daily Assessment & Plan (07/09/2021 8:40 AM CDT): HPI: Condition is stable A&P: Discussed/ordered labs, encouraged healthy, low carbohydrate lifestyle and at least 150min/week of exercise, continue on vitamin D2 10,000 units daily. Assessment & Plan (11/14/2020 8:00 AM HEALTH EDUCATION AIDE): HPI: Condition is stable A&P: Discussed/ordered labs, encouraged healthy, low carbohydrate lifestyle and at least 150min/week of exercise, continue [place] d 30046 units daily Assessment & Plan (06/27/2020 11:17 AM CDT): HPI: Condition is worsening A&P: Discussed/ordered labs, encouraged healthy, low carbohydrate lifestyle and at least 150min/week of exercise, [place] [address] units from twice a week to daily as level has decreased from 35 to 31 Assessment & Plan (03/21/2020 11:00 AM CDT): Discussed/ordered labs, Condition is improving, but not at goal encouraged healthy, low carbohydrate lifestyle and at least 150min/week of exercise, increase the vit d3 03543 units to twice weekly. Assessment & Plan (09/20/2019 7:39 AM HEALTH EDUCATION AIDE): Discussed/ordered labs, Condition is stable, encouraged healthy, low carbohydrate lifestyle and at least 150min/week of exercise, [place] d 79790 units weekly. We will recheck vit d level at next office visit Mild episode of recurrent major depressive disor ubaldo 06/21/2019 Assessment & Plan (09/19/2024 9:24 AM HEALTH EDUCATION AIDE): -chronic, improving, but not at goal -Patient [...] counselor Assessment & Plan (08/15/2024 8:02 AM HEALTH EDUCATION AIDE): -chronic, not at/near goal -Discussed/ordered labs -Increase [...] daily Assessment & Plan (11/14/2020 3:24 PM HEALTH EDUCATION AIDE): Patient reiterated no suicidal thoughts at this [...] it. Assessment & Plan (09/20/2019 9:09 AM HEALTH EDUCATION AIDE): Patient reiterated no suicidal thoughts at this [...] 06/21/2019 Assessment & Plan (09/19/2024 9:24 AM HEALTH EDUCATION AIDE): -chronic, improving, but not at goal -Patient [...] counselor Assessment & Plan (08/15/2024 8:02 AM HEALTH EDUCATION AIDE): -chronic, stable- depression is not at goal [...] daily Assessment & Plan (11/14/2020 3:23 PM HEALTH EDUCATION AIDE): Patient reiterated no suicidal thoughts at this [...] it. Assessment & Plan (09/20/2019 9:08 AM HEALTH EDUCATION AIDE): Patient reiterated no suicidal thoughts at this [...] bone loss and vit B12 deficiency with pain coordinator use of PPI with pt, would like [...] bone loss and vit B12 deficiency with pain coordinator use of PPI with pt, would like [...] bone loss and vit B12 deficiency with pain coordinator use of PPI with pt, would like [...] bone loss and vit B12 deficiency with usp use of PPI with pt, would like [...] of cdif and vit B12 deficiency with usp use of PPI with pt, would like to remain on medication at this time Assessment & Plan (11/14/2020 8:01 AM HEALTH EDUCATION AIDE): HPI: Condition is stable Continue on current meds omeprazole 20 mg daily, encouraged healthy diet and exercise Avoid trigger foods including: carbonated beverages, caffeine, spicy, fried foods, tomatoes, cucumbers, and mint Avoid eating/drinking anything for at least 2 hours before bed. Sleep with bed propped. Discussed increased risk of cdif and vit B12 deficiency with usp use of PPI with pt, would like [...] of cdif and vit B12 deficiency with pain coordinator use of PPI with pt, would like [...] of cdif and vit B12 deficiency with usp use of PPI with pt, would like to remain on medication at this time Assessment & Plan (09/20/2019 7:38 AM HEALTH EDUCATION AIDE): Continue on current meds-omeprazole 20mg , encouraged healthy diet and exercise Avoid trigger foods including: carbonated beverages, caffeine, spicy, fried foods, tomatoes, cucumbers, and mint Avoid eating/drinking anything for at least 2 hours before bed. Sleep with bed propped. Discussed increased risk of cdif with usp use of PPI with pt, would like to remain on medication at this time Assessment & Plan (06/21/2019 11:17 AM CDT): Continue on current meds-omeprazole, encouraged healthy diet and exercise Avoid trigger foods including: caffeine, spicy, fried foods, tomatoes, cucumbers, and mint Discussed increased risk of cdif with pain coordinator use of PPI with pt, would like to remain on medication at this time Class 2 severe obesity with serious comorbidity and body mass index (BMI) of 36.0 to 36.9 in adult 12/03/2016 Assessment & Plan (09/19/2024 9:24 AM HEALTH EDUCATION AIDE): -chronic, not at/near goal goal BMI <30 Healthy, high-protein, lower carbohydrate, lower fat lifestyle and exercise for 150min/week recommended Recommend tracking everything you put in your mouth on an kasia like Microblr -Patient does not want to use a weight loss injection medication -Discuss other options with the patient including phentermine and topiramate. -Patient does not want to start a medication at this time -Keep scheduled appointment care partner. Advised patient to let me know if she would like to see a different care partner to see if she can get in [...] cup. Assessment & Plan (08/15/2024 8:02 AM HEALTH EDUCATION AIDE): -chronic, not at/near goal goal BMI <30 Healthy, high-protein, lower carbohydrate, lower fat lifestyle and exercise for 150min/week recommended Recommend tracking everything you put in your mouth on an kasia like Microblr -start on zepbound 2.5 mg weekly x [...] thyroid cancer or pancreatitis. -Referral sent to care partner Hand Measurements: A fist or cupped hand [...] in your mouth on an kasia like Microblr Hand Measurements: A fist or cupped hand [...] in your mouth on an kasia like Microblr Hand Measurements: A fist or cupped hand [...] in your mouth on an kasia like Microblr Hand Measurements: A fist or cupped hand [...] in your mouth on an kasia like Microblr Lower carb substitutions: Angelica carries a zero net carb bread If [...] in much longer they will become mushy [place] and/or coconut flour instead of regular flour [...] pork rinds For yogurt, try Two Good wallisian yogurt Use Quentin for recipe ideas. Type in low carb... [...] in your mouth on an kasia like Microblr or Photowhoa Aldi carries a zero net carb bread [...] in much longer they will become mushy [place] and/or coconut flour instead of regular flour [...] pork rinds For yogurt, try Two Good wallisian yogurt Use Pinterest for recipe ideas. Type in low carb... Assessment & Plan (07/09/2021 8:45 AM CDT): HPI: Condition is not at/near goal goal BMI <30 A&P: Healthy, high-protein, lower carbohydrate, lower fat lifestyle and exercise for 150min/week recommended Substitutions: Recommend tracking everything you put in your mouth on an kasia like Microblr or Placeable, LLCi carries a zero net carb bread If [...] in much longer they will become mushy [place] and/or coconut flour instead of regular flour [...] pork rinds For yogurt, try Two Good wallisian yogurt Use Pinterest for recipe ideas. Type in low carb... Assessment & Plan (04/04/2021 7:10 AM CDT): HPI: Condition is not at/near goal goal BMI <30 A&P: Healthy, high-protein, lower carbohydrate, lower fat lifestyle and exercise for 150min/week recommended Substitutions: Recommend tracking everything you put in your mouth on an kasia like Microblr or Photowhoa Aldi carries a zero net carb bread [...] in much longer they will become mushy [place] and/or coconut flour instead of regular flour [...] pork rinds For yogurt, try Two Good wallisian yogurt Use Pinterest for recipe ideas. Type in low carb... Assessment & Plan (02/28/2021 10:44 AM CDT): HPI: Condition is not at/near goal of BMI <30 A&P: Healthy, low carbohydrate lifestyle and exercise for 150min/week recommended Substitutions: Recommend tracking everything you put in your mouth on an kasia like Microblr or Photowhoa Aldi carries a zero net carb bread [...] in much longer they will become mushy [place] and/or coconut flour instead of regular flour [...] pork rinds For yogurt, try Two Good wallisian yogurt Use Pinterest for recipe ideas. Type in low carb... Assessment & Plan (01/10/2021 7:12 AM CDT): HPI: Condition is stable A&P: Healthy, low carbohydrate lifestyle and exercise for 150min/week recommended Substitutions: Recommend tracking everything you put in your mouth on an kasia like Microblr Troyi carries a zero net carb bread If [...] in much longer they will become mushy [place] and/or coconut flour instead of regular flour [...] pork rinds For yogurt, try Two Good wallisian yogurt Use Pinterest for recipe ideas. Type in low carb... Assessment & Plan (11/14/2020 8:02 AM HEALTH EDUCATION AIDE): HPI: Condition is stable A&P: Healthy, low carbohydrate lifestyle and exercise for 150min/week recommended Substitutions: Recommend tracking everything you put in your mouth on an kasia like Microblr Aldi carries a zero net carb bread [...] in much longer they will become mushy [place] and/or coconut flour instead of regular flour [...] pork rinds For yogurt, try Two Good wallisian yogurt Use Pinterest for recipe ideas. Type [...] in much longer they will become mushy [place] and/or coconut flour instead of regular flour [...] ice cream, try the brand Enlightened Use PinterKidoZen for recipe ideas. Type in low carb... Assessment & Plan (03/21/2020 11:04 AM CDT): Healthy, low carbohydrate lifestyle and exercise for 150min/week recommended Assessment & Plan (09/20/2019 7:37 AM HEALTH EDUCATION AIDE): Healthy, low carbohydrate lifestyle and exercise for 150min/week recommended Assessment & Plan (06/21/2019 11:10 AM CDT): Healthy, low carbohydrate diet and exercise for 150min/week recommended Atopic rhinitis 02/18/2014 Overview (01/07/2017): Allergic rhinitis Assessment & Plan (08/15/2024 8:00 AM HEALTH EDUCATION AIDE): -chronic, stable Discussed environmental controls No smoking [...] daily. Assessment & Plan (11/14/2020 7:59 AM HEALTH EDUCATION AIDE): HPI: Condition is stable A&P: Discussed environmental [...] away Assessment & Plan (09/20/2019 7:41 AM HEALTH EDUCATION AIDE): Discussed environmental controls No smoking around patient, [...] brain Assessment & Plan (08/15/2024 8:00 AM HEALTH EDUCATION AIDE): -chronic, stable -Discussed/ordered labs -continue on clopidogrel [...] daily. Assessment & Plan (11/14/2020 7:59 AM HEALTH EDUCATION AIDE): HPI: Condition is stable A&P: Discussed/ordered labs, [...] daily Assessment & Plan (09/20/2019 7:41 AM HEALTH EDUCATION AIDE): Discussed/ordered labs, Condition is stable, encouraged healthy, low carbohydrate lifestyle and at least 150min/week of exercise, continue on plavix 75mg daily Assessment & Plan (06/21/2019 11:33 AM CDT): Discussed labs, Condition is stable, encouraged healthy, low carbohydrate diet and at least 150min/week of exercise, continue on plavix Labs ordered Hypothyroidism 02/18/2014 Overview (01/07/2017): HYPOTHYROIDISM NOS Assessment & Plan (08/15/2024 8:00 AM HEALTH EDUCATION AIDE): -chronic, stable -Discussed/ordered labs -continue on levothyroxine [...] day. Assessment & Plan (11/14/2020 7:58 AM HEALTH EDUCATION AIDE): HPI: Condition is stable A&P: Discussed/ordered labs, [...] daily Assessment & Plan (09/20/2019 7:41 AM HEALTH EDUCATION AIDE): Discussed/ordered labs, Condition is stable, encouraged healthy, [...] HYPERLIPIDEMIA Assessment & Plan (08/15/2024 8:04 AM HEALTH EDUCATION AIDE): -chronic, stable -Discussed/ordered labs -continue on atorvastatin [...] LDL 70 Trigs 152 Encouraged heart healthy [id number]-ohi-orm, low carb, low-cholesterol Assessment & Plan (01/05/2023 [...] daily. Assessment & Plan (11/14/2020 7:59 AM HEALTH EDUCATION AIDE): HPI: Condition is stable A&P: Discussed/ordered labs, [...] 80mg. Assessment & Plan (09/20/2019 7:40 AM HEALTH EDUCATION AIDE): Discussed/ordered labs, Condition is improving, encouraged healthy, [...] cpap Assessment & Plan (11/14/2020 3:20 PM HEALTH EDUCATION AIDE): Pt states using cpap for 7 hours/night [...] week Assessment & Plan (09/20/2019 8:53 AM HEALTH EDUCATION AIDE): Pt saw Dr. Jaime last week, is [...] disease 02/18/201406/21 Overview (01/10/2017): Carotid artery disease Immunizations Immunization Administration Dates Next Due Influenza, [...] 03/21/2020,11/28/2009 ZOSTER LIVE 10/28/2017 ZOSTER Recombinant 03/21/2020,11/03/2019 Social History Tobacco Use Types Packs/Day Years [...] on file Legal Sex Female 11:33 PM HEALTH EDUCATION AIDE Gender Identity Not on file Sexual Orientation Not on file Last Filed Vital Signs Vital Sign Reading Time Taken Comments Blood Pressure 128/74 09/19/2024 8:58 AM HEALTH EDUCATION AIDE Pulse 68 09/19/2024 8:58 AM HEALTH EDUCATION AIDE Temperature 36.2 C (97.1 F) 09/19/2024 8:58 AM HEALTH EDUCATION AIDE Respiratory Rate 16 09/19/2024 8:58 AM HEALTH EDUCATION AIDE Oxygen Saturation 97% 09/19/2024 8:58 AM HEALTH EDUCATION AIDE Inhaled Oxygen Concentration - - Weight 84.4 kg (186 lb) 09/19/2024 8:58 AM HEALTH EDUCATION AIDE Height 152.4 cm (5') 09/19/2024 8:58 AM HEALTH EDUCATION AIDE Body Mass Index 36.33 09/19/2024 8:58 AM HEALTH EDUCATION AIDE Plan of Treatment Not on file Procedures Procedure Name Priority Date/Time Associated Diagnosis Comments SURGICAL PATHOLOGY Routine 09/15/2024 12 :00 AM HEALTH EDUCATION AIDE Skin neoplasm SCREENING MAMMOGRAM BILATERAL W STEWART Schedule Routine, Read Routine (OP Routine) 03/07/2024 9:14 AM CDT Encounter for screening mammogram for malignant neoplasm of breast DEXA AXIAL SKELETON BONE DENSITY 1 OR MORE SITES Schedule Routine, Read Routine (OP Routine) 02/20/2023 9:58 AM CDT Postmenopausal HEPATITIS C ANTIBODY Routine 09/14/2019 7:35 AM HEALTH EDUCATION AIDE COLONOSCOPY REPORT 01/19/2017 from Last 3 Months or Most Recently Relevant to Health Maintenance Results * Surgical pathology (09/15/2024 12:00 AM HEALTH EDUCATION AIDE) Tissue (Skin, shave biopsy) 09/15/2024 09/16/2024 5:55 AM HEALTH EDUCATION AIDE [facility] - 09/19/2024 11:40 AM HEALTH EDUCATION AIDE EPIC results best viewed via link to PDF [facility] [address] [place] [address], [address], [place] [address] [email or web address] Note to Patients: This report may contain [...] FINAL REPORT Patient Information: PATIENT NAME: ZENOBIA KELSEY SEX: F : 1955 (Age: 69) Specimen Information: COLLECTED: 09/15/2024 RECEIVED: 09/16/2024 REPORTED: 09/19/2024 Submitting Physician Information: Sylwia Ashraf, [address], Medical Office Building [address], [address] [place] [address], DERMATOPATHOLOGY REPORT RESULTS DIAGNOSIS: A. SKIN, LEFT [...] than those at the time of procedure. jaun/mxf ICD-9 ZSD.232 ZSD.1411 Clerical Data A; 07628 B; 02334 The characteristics of special, immunohistochemical, and immunofluorescence stains and in-situ hybridization tests performed by the [facility] were deemed acceptable in ongoing quality control tester measures and in compliance with regulations drawn from the Clinical Laboratory Improvement Act ns9735 (CLIA '88). Control reactions for all stains performed were deemed adequate and appropriate by a pathologist prior to evaluation of patient tissue. Some diagnoses were rendered with the assistance of laboratory-developed tests utilizing analyte-specific reagents; the performance characteristic of these tests were determined by [facility] and are not cleared or approved by the [place] Food an Drug administration. Laboratory developed test may only be performed in a facility that is certified by the [facility] as a high-complexity laboratory under CLIA '88. These tests are used for clinical purposes and are not investigational. Sylwia Ashraf NP LAB PATHOLOGY ORD ERABLES Final Result [facility]Y CENTER [address] [place] [id number] * Screening Mammogram Bilateral W Stewart (03/07/2024 [...] her next mammogram. Electronically signed by: AUDREY Velazco 03/07/2024 9:21 AM CDT EXAMINATION: SCREENING MAMMOGRAM BILATERAL W STEWART ORDERING HEALTHCARE PROVIDER: VERNELL NEWTON HISTORY: Routine screening mammography. COMPARISON: 02/20/2023, 02/07/2022, 01/26/2021. TECHNIQUE: CC and MLO views of both breasts were obtained with digital technique using digital breast tomosynthesis with C view. Computer aided detection was utilized. FINDINGS: DENSITY: The breasts are almost entirely fatty. BREASTS: There is no new suspicious finding in either breast on mammogram. us Vernell Newton MVA STILL OPERATOR IMG MAMMO PROCEDURES Final Resul t * Dexa Axial Skeleton Bone Density 1 Or 2 Site (02/20/2023 9:58 AM CDT) Anatomical Region Laterality Modality Body N/A Other 02/21/2023 2:21 PM CDT Narrative 02/21/2023 2:23 PM CDT EXAM DESCRIPTION: DEXA AXIAL SKELETON BONE DENSITY 1 OR MORE SITES REASON FOR STUDY: 68 y/o year old F with given history of screening. Postmenopausal Yarn Cleaner/Model: Abaxia Discovery SL ([id number]/N [id number]) CLINICAL INFORMATION: Current height: 60 inches Maximum [...] Toby Aceves M.D. MF: LINH Report ID: [id number] Reading Location: [id number] Procedure Note Toby Aceves MD - 02/21/2023 EXAM DESCRIPTION: DEXA AXIAL SKELETON BONE DENSITY 1 OR MORE SITES REASON FOR STUDY: 68 y/o year old F with given history of screening. Postmenopausal Yarn Cleaner/Model: Abaxia Discovery SL ([id number]/N [id number]) CLINICAL INFORMATION: Current height: 60 inches Maximum [...] Toby Aceves M.D. MF: LINH Report ID: [id number] Reading Location: [id number] Adela Colón MVA STILL OPERATOR IMG DXA PROCEDURES Final Res ult * Hepatitis C antibody (09/14/2019 7:35 AM HEALTH EDUCATION AIDE) Hep C Ab NON-REACT RIN NON-REACT RIN [facility] [place] SIGNAL TO CUT-OFF 0.03 <1.00 [facility] [place] Comment: HCV antibody was non-reactive. There is no laboratory evidence of HCV infection. In most cases, no further action is required. However, if recent HCV exposure is suspected, a test for HCV RNA (test code 30108) is suggested. For additional information please refer to http://education.Calendargod/faq/AAM47z2 (This link is being provided for informational/ educational purposes only.) 09/14/2019 7:35 AM HEALTH EDUCATION AIDE 09/14/2019 7:37 AM HEALTH EDUCATION AIDE Narrative [facility] - 09/20/2019 8:03 AM HEALTH EDUCATION AIDE FASTING:YES FASTING: YES Resulting Agency Comment Performing Organization Information: Site ID: [place] Name: [facility] Address: [address] [place], [place] [address] [address] Director: Jamie Vazquez D.O., MPH Keesha Dey NP LAB MICROBIOLOGY - GENERAL ORDERABLES Final Result [facility] [place], [place] * COLONOSCOPY REPORT (01/19/2017) Anatomical Region Laterality Modality Other Narrative 01/19/2017 Ordered by an unspecified provider. Historical Provider GI PROCEDURE ORDERABLES F inal Result from Last 3 Months or Most Recently Relevant to Health Maintenance Insurance AETNA MEDICARE AETNA MEDICARE AET MEDICARE Care Teams Cut Filer Relationship Specialty Start Date End Date Adela Colón NP [address] [facility] [place] [address] PCP - General Family Medicine 09/24/22 Vernell Newton NP [address] [facility] [address] Obstetrics and Gynecology 01/18/24
== END 2024-12-07 09:44 | disposition home or self-care (01) ==
PROVIDERS: Emergency Provider Nurse Practitioner
DX: J22 Unspecified acute lower respiratory infection (principal); I10 Essential (primary) hypertension; E78.00 Pure hypercholesterolemia, unspecified; Z86.73 Personal history of transient ischemic attack (TIA), and cerebral infarction without residual deficits; Z79.01 Long term (current) use of anticoagulants
CPT/HCPCS: 99213; G0463